=== PATIENT | male | born 2000 | race Two or more races ===

== ENCOUNTER 2024-04-06 23:13 | Emergency (ER) | payer MEDICAID, SELFPAY ==
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
[2024-04-06 23:56] VITALS: BP 140/76; PULSE 127; RESP 18; TEMP 36.7; O2SAT 95
[2024-04-06 23:58] VITALS: BMI 22.8
[2024-04-07] MEDS: HALOPERIDOL LACT INJ 5 MG/ML VIAL IM (00:24)
[2024-04-07] MEDS: LORazepam 2 MG/ML VIAL IM (00:25)
--- NOTE | 2024-04-07 00:27 | PC.NURSE ---
PT STARTED TO SAY HE WANTS TO LEAVE, STARTED YELLING AND CURSING, VALENTIN ZAMORA CALLED, RESTRAINT APPLIED, DR. RODRIGUEZ AWARE , NEW ORDER GIVEN AND CARRIED OUT.
[2024-04-07 01:08] LABS: Basophils # (Auto) 0.1 Thou/mm3 (0.0-0.2); Basophils % (Auto) 0 % (0-2.5); Eosinophils # (Auto) 0.1 Thou/mm3 (0.0-0.5); Eosinophils % (Auto) 1 % (0-10); Hematocrit 46.4 % (41.0-53.0); Hemoglobin 16.4 g/dL (13.5-16.0); Immature Granulocytes % (Auto) 1 % (0-0); Immature Granulocytes Auto 0.09 Thou/mm3 (0.00-0.00); Lymphocytes # (Auto) 3.6 Thou/mm3 (1.0-4.8); Lymphocytes % (Auto) 21 % (10-50); Mean Corpuscular HGB Conc 35.3 g/dl (31.0-37.0); Mean Corpuscular Hemoglobin 29.6 pg (25.0-35.0); Mean Corpuscular Volume 84 fL (80-100); Monocytes # (Auto) 0.8 Thou/mm3 (0.0-0.8); Monocytes % (Auto) 5 % (0-12); Neutrophils # (Auto) 12.9 Thou/mm3 (1.8-7.7); Neutrophils % (Auto) 73 % (37-80); Nucleated Red Blood Cell % 0 /100 WBC (0); Platelet Count 341 Thou/mm3 (140-440); Red Blood Count 5.54 Miln/mm3 (4.50-5.90); White Blood Count 17.6 Thou/mm3 (3.8-10.6)
[2024-04-07 01:23] LABS: Acetaminophen < 2.0 mcg/mL (10.0-20.0); Alanine Aminotransferase 19 U/L (10-49); Albumin, Serum 5.2 gm/dL (3.5-5.0); Albumin/Globulin Ratio 1.5 (1.2-2.2); Alcohol, Blood Medical 205.4 mg/dL (0-10.0); Alkaline Phosphatase 83 U/L (46-116); Anion Gap 28 (7-16); Aspartate Amino Transferase 28 U/L (0-34); BUN/Creatinine Ratio 10 Ratio (12-20); Bilirubin,Total 0.4 mg/dL (0.3-1.2); Blood Urea Nitrogen 13 mg/dL (9-23); Calcium 9.7 mg/dL (8.3-10.6); Calcium (Corrected) 9.7 mg/dL (8.5-10.1); Chloride 109 mMol/L (98-107); Creatinine (Component) 1.3 mg/dL (0.6-1.3); Estimated Creatinine Clearance 85.8 mL/min (>60); Free T4 (Free Thyroxine) 1.58 ng/dL (0.89-1.76); Globulin 3.4 gm/dL (2.3-3.5); Glucose 121 mg/dL (74-106); Osmolality,Calculated 295 (275-295); Potassium 3.1 mMol/L (3.4-5.1); Salicylate < 3.0 mg/dL; Sodium 148 mMol/L (136-145); Thyroid Stimulating Hormone 2.81 uIU/mL (0.55-4.78); Total Protein 8.6 gm/dL (5.7-8.2); eGFR > 60 See Note
[2024-04-07 01:25] LABS: Carbon Dioxide 11.3 mMol/L (20.0-31.0)
[2024-04-07 02:18] VITALS: BP 138/68; PULSE 84; RESP 17; TEMP 36.7; O2SAT 97
[2024-04-07 04:43] VITALS: BP 96/63; PULSE 80; RESP 17; TEMP 36.7; O2SAT 98
[2024-04-07 04:51] LABS: Anion Gap 15 (7-16); BUN/Creatinine Ratio 12 Ratio (12-20); Blood Urea Nitrogen 12 mg/dL (9-23); Carbon Dioxide 22.5 mMol/L (20.0-31.0); Chloride 108 mMol/L (98-107); Estimated Creatinine Clearance 111.5 mL/min (>60); Glucose 113 mg/dL (74-106); Osmolality,Calculated 289 (275-295); Potassium 3.2 mMol/L (3.4-5.1); Sodium 145 mMol/L (136-145); eGFR > 60 See Note
[2024-04-07 06:18] LABS: Amphetamine/Methamp Scrn,U Negative (Negative); Barbiturate Screen,Urine Negative (Negative); Benzodiazepines Screen,Urine Negative (Negative); Benzoylecgonine Screen, Ur Negative (Negative); Fentanyl Screen,Urine Negative (Negative); Opiate Screen,Urine Negative (Negative); THC Screen,Urine Positive (Negative)
[2024-04-07 06:19] VITALS: BP 112/73; PULSE 66; RESP 18; TEMP 36.7; O2SAT 98
--- NOTE | 2024-04-07 06:23 | XR_ITS ---
Examination: CT brain head without contrast. 2-D sagittal coronal reconstructions Date and time of exam:April 07, 2024 0658 hrs. Indications: Injury to the head today with hand pain CTDI: vol (mGy):50.9 DLP: (mGycm):1005 Technique: Multiple CT axial sections of the brain have been obtained, 5 mm slice thickness. Contrast has not been administered. 2-D sagittal, coronal reconstructions have been obtained Low dose protocols were performed. One or more of the following dose reduction techniques were used; automated exposure control, adjustment of the mA and/or KV according to patient size, use of iterative reconstruction technique. Findings: No significant ventricular enlargement. Intra-axial or extra-axial hemorrhage density is not seen. No mass effect or midline shift Basal cisterns are not remarkable. Fourth ventricle is midline. Cranial vault intact. Soft tissue swelling anterior to the right optic globe and right zygomatic arch Impression: Negative for acute hemorrhage, mass effect or midline shift
--- NOTE | 2024-04-07 06:24 | XR_ITS ---
Examination: CT cervical spine without contrast 2-D sagittal reconstructions 2-D coronal reconstructions 3-D reconstructions. Exam date and time:April 07, 2024 0658 hrs. Indications: Injury to the head today, head pain CTDI:vol (mGy) 8.32 DLP: (mGycm) 176 Technique: Multiple 2 mm axial sections of the cervical spine have been obtained. The coronal and sagittal reconstructions have been obtained. 3-D reconstructions have been obtained. Low dose protocols were performed. One or more of the following dose reduction techniques were used; automated exposure control, adjustment of the mA and/or KV according to patient size, use of iterative reconstruction technique. Findings: Axial sections demonstrate intact base of the skull. C1 exhibit satisfactory relationship to the odontoid. No acute cervical vertebral body fracture seen. Alignment posterior spinous processes satisfactory. Impression: No acute cervical fracture.
--- NOTE | 2024-04-07 06:41 | PD.EDADDENDU ---
Emergency Room Addendum Addendum Narrative: 0600: Care assumed from Dr. Galvan, the previous shift emergency physician. Past medical, surgical, social and family history reviewed. Vitals and home medications reviewed. I will assume the care of the patient at this time, pending medical clearance and CRISIS evaluation. Please refer to the emergency department record for history and examination from initial visit.? The patient was placed in ED observation care at 04/07/2024 at 0600 hours. The patient was placed in ED observation care because of undifferentiated decompensated behavioral health evaluation. The patients past medical history, social history, and family history were reviewed. The plan of care will include serial examinations. While in ED observation the patient will have access to water, food, and personal hygiene. If the patient takes home medication(s), they will be continued in ED observation. Physical exam by me shows patient under no acute distress at this time. 0900: Patient is medically cleared. Negative head CT and cervical CT. Pending CRISIS evaluation. 0946: Patient was placed on a 5150 hold. 1200: [facility] accepted patient. 1300: Patient left to [facility]. ED observation care ended. RADIOLOGY Procedure(s): CT head/brain wo con Accession Number(s): [id number] cc: Tip Hatfield MD; NO PRIMARY/FAMILY,PHYSICIAN; Adelaide Jacobs MD~ Examination: CT brain head without contrast. 2-D sagittal coronal reconstructions Date and time of exam:April 07, 2024 0658 hrs. Indications: Injury to the head today with hand pain CTDI: vol (mGy):50.9 DLP: (mGycm):1005 Technique: Multiple CT axial sections of the brain have been obtained, 5 mm slice thickness. Contrast has not been administered. 2-D sagittal, coronal reconstructions have been obtained Low dose protocols were performed. One or more of the following dose reduction techniques were used; automated exposure control, adjustment of the mA and/or KV according to patient size, use of iterative reconstruction technique. Findings: No significant ventricular enlargement. Intra-axial or extra-axial hemorrhage density is not seen. No mass effect or midline shift Basal cisterns are not remarkable. Fourth ventricle is midline. Cranial vault intact. Soft tissue swelling anterior to the right optic globe and right zygomatic arch Impression: Negative for acute hemorrhage, mass effect or midline shift Dictated By: Tip Hatfield MD Procedure(s): CT cervical spine wo [facility] Accession Number(s): [id number] cc: Tip Hatfield MD; NO PRIMARY/FAMILY,PHYSICIAN; Adelaide Jacobs MD~ Examination: CT cervical spine without contrast 2-D sagittal reconstructions 2-D coronal reconstructions 3-D reconstructions. Exam date and time:April 07, 2024 0658 hrs. Indications: Injury to the head today, head pain CTDI:vol (mGy) 8.32 DLP: (mGycm) 176 Technique: Multiple 2 mm axial sections of the cervical spine have been obtained. The coronal and sagittal reconstructions have been obtained. 3-D reconstructions have been obtained. Low dose protocols were performed. One or more of the following dose reduction techniques were used; automated exposure control, adjustment of the mA and/or KV according to patient size, use of iterative reconstruction technique. Findings: Axial sections demonstrate intact base of the skull. C1 exhibit satisfactory relationship to the odontoid. No acute cervical vertebral body fracture seen. Alignment posterior spinous processes satisfactory. Impression: No acute cervical fracture. Dictated By: Tip Hatfield MD
[2024-04-07] MEDS: POTASSIUM CHLORIDE 10% 20 MEQ/15 ML UDC 40 MEQ PO (09:35)
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
[2024-04-07 10:00] VITALS: BP 131/74; PULSE 80; RESP 22; TEMP 37.1; O2SAT 96
--- NOTE | 2024-04-07 10:48 | PC.NURSE ---
BREAKFAST TRAY DELIVERED, PT EATING, SITTER REMAINS IN PLACE
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
--- NOTE | 2024-04-07 11:07 | PC.CC ---
Patient was accepted to [facility]. Rachel provided accepting information. Dr. Adler is accepting in [address]. ASW arranging transportation. Patient was provided with accepting facility information. Discharge plan to [facility] provided to Dr. Jacobs, Ira Hoffman, and bedside RN Hayden.
== END 2024-04-07 13:10 ==
LOC: SERX 04-07 00:31
PROVIDERS: Emergency Provider Emergency Medicine
DX: R45.851 Suicidal ideations (principal); S00.81XA Abrasion of other part of head, initial encounter; F12.90 Cannabis use, unspecified, uncomplicated; F10.90 Alcohol use, unspecified, uncomplicated; Y90.7 Blood alcohol level of 200-239 mg/100 ml; F17.210 Nicotine dependence, cigarettes, uncomplicated; Z78.1 Physical restraint status; Y09 Assault by unspecified means
CPT/HCPCS: 36415; 70450; 72125; 80048; 80053; 80307; 80320; 80329; 84439; 84443; 85025; 90839; 96127; 96372; 99285; J1630; J2060; A9270; G0480

== ENCOUNTER 2024-07-01 15:27 | Emergency (ER) | payer MEDICAID, SELFPAY ==
[2024-07-01 15:30] VITALS: BP 135/75; PULSE 116; RESP 18; O2SAT 94; BMI 22.6
--- NOTE | 2024-07-01 15:30 | PC.NURSE ---
PT BROUGHT IN BY BENITA GRAHAM WITH FULL BODY WRAP ON, SPIT HOOT AND HELMET ON FOR SAFETY OF PT/STAFF/OFFICERS. PT YELLING AND CUSSING, REFUSING TO ANSER ANY QUESTIONS. PER OFFICER, PT WAS FOUND WITH LOTS OF ALCOHOL ON HIM.
--- NOTE | 2024-07-01 15:32 | PD.EDMEDCL ---
ED Medical Clearance RME/HPI General Chief complaint: Medical Clearance Stated complaint: MEDICAL CLEARANCE Time Seen by Provider: 07/01/24 15:33 Arrival date/time: 07/01/24 15:27 Limitations: no limitations RME / HPI RME / HPI Narrative: 23 year old male presents to the ED [facility] and Yanna GRAHAM for medical clearance for incarceration today. Per PD, patient was arrested for public intoxication and was combative during arrest. No injuries sustained. While in the ED patient refusing to answer any questions and is laughing inappropriately. Related Information Previous Rx's ?Medication ?Instructions ?Recorded metoclopramide HCl 5 mg tablet 5 mg PO TID #30 tabs 04/26/22 (Reglan) ondansetron 4 mg disintegrating 4 mg PO Q8H PRN nausea and 04/26/22 tablet vomiting #10 tabs potassium chloride 20 mEq 20 meq PO QDAY #10 tabs 09/07/22 tablet,extended release prochlorperazine maleate 10 mg 10 mg PO BID PRN nausea and 09/07/22 tablet (Compazine) vomiting #14 tabs Allergies Allergy/AdvReac Type Severity Reaction Status Date / Time No Known Allergies Allergy Verified 07/01/24 15:34 Review of Systems Review of Systems ROS Unobtainable: unobtainable due to mental status Past Medical History Past Medical History CARDIAC: Negative Cardiac Disorders or Congestive Heart Failure RESPIRATORY: Negative Chronic Obstructive Pulmonary Disease (COPD) or Asthma GENITOURINARY: Negative Renal Disease ENDOCRINE: Negative Diabetes Mellitus Type 1 or Diabetes Mellitus Type 2 HEMATOLOGIC: Negative Sickle Cell Disease PSYCHO/SOCIAL: Positive Recreational Drug Use Social History SMOKING STATUS: Current some day smoker SUBSTANCE USE: marijuana ED Exam General Limitations: Present no limitations General appearance: Present alert and other (Patient is combative, refusing to answer questions, laughing inappropriately, no obvious trauma ) Head Head exam: Present atraumatic Eye Eye exam: Present normal appearance, PERRL and EOMI ENT ENT exam: Present normal exam, normal oropharynx and mucous membranes moist Neck Neck exam: Present normal inspection, full ROM and trachea midline Chest Chest inspection: Present normal inspection and symmetric chest wall rise Respiratory Respiratory exam: Present normal lung sounds bilaterally Cardiovascular Cardiovascular exam: Present regular rate, normal rhythm and normal heart sounds Abdominal Exam Abdominal exam: Present soft and normal bowel sounds Extremities Exam Extremities exam: Present normal inspection and full ROM Back Exam Back exam: Present normal inspection and full ROM Neurological Exam Neurological exam: Present alert and CN II-XII intact Psychiatric Psychiatric exam: Present other (Laughing inappropriately. ) Skin Skin exam: Present warm, dry, intact and normal color Course Quality Measures none Orders Category Date Time Status Discharge Routine Discharge 07/01/24 15:31 Active Vital Signs Vital signs: Vital Signs Pulse Rate 116 H 07/01/24 15:30 Respiratory Rate 18 07/01/24 15:30 Blood Pressure 135/75 H 07/01/24 15:30 Pulse Oximetry (%) 94 L 07/01/24 15:30 Oxygen Delivery Method Room Air 07/01/24 15:30 Pulse ox is 94% on room air which is adequate. Medical Clearance MDM Narrative MDM Narrative:: Pauline Glover am scribing for and in the presence of Dr. Mueller. Patient data External records reviewed:: [facility] previous records (I reviewed ED visit on 04/07/2024 for suicidal ideation ) Clinical information provided by:: law enforcement Social determinants that could affect healthcare access:: alcohol use Patient has the following chronic illnesses:: No chronic medical hx reported How is presenting disease/condition affected by chronic disease/condition?: no chronic disease Evaluation data The following diagnostics were reviewed and interpreted by me:: other (specify) (No diagnostics ordered ) Lab and/or radiology exams considered but not ordered:: None Interpretation Summary: N/A Medications / Prescriptions Medications or Prescriptions considered but not ordered:: None Medication administrations:: None Consultations Consultation(s) initiated? (list below): No Diagnosis Medical Clearance Differential Diagnosis: other (Alcohol intoxication, anxiety, medical clearance for incarceration ) Most likely diagnosis given after review of the tests above:: Alcohol intoxication Admission Indicated Admission indicated?: not indicated Admission Request Was there a request for admission?: No Disposition Plan Disposition Plan: Discharge Discharge Attestation Discharge Attestation: The patient and all family members were given an opportunity to ask questions and understood the discharge instructions. Discharge instructions specifically effects, indications for sooner follow up or return to the emergency department, and the expected course of current diagnosis. Patient condition: Stable Discharge Plan Plan Patient Disposition: Senior Care/Court/Law Patient condition on transfer: Stable Prescriptions/Referrals Prescriptions/Med Rec: No Action prochlorperazine maleate [Compazine] 10 mg tablet 10 mg PO BID PRN (Reason: nausea and vomiting) Qty: 14 0RF potassium chloride 20 mEq tablet extended release 20 meq PO QDAY Qty: 10 0RF ondansetron 4 mg tablet,disintegrating 4 mg PO Q8H PRN (Reason: nausea and vomiting) Qty: 10 0RF metoclopramide HCl [Reglan] 5 mg tablet 5 mg PO TID Qty: 30 0RF Problem List Clinical Impression: Alcohol intoxication Patient/Caregiver Discharge Instructions Discharge Activity: activity as tolerated Education Materials: ED Alcohol Intoxication Print Language: [place]
[2024-07-01 15:33] VITALS: BMI 24.2
[2024-07-01 15:43] VITALS: BP 135/75; PULSE 124; RESP 20; O2SAT 95
== END 2024-07-01 15:45 ==
PROVIDERS: Emergency Provider Emergency Medicine
DX: Z02.89 Encounter for other administrative examinations (principal); F10.929 Alcohol use, unspecified with intoxication, unspecified
CPT/HCPCS: 99281

== ENCOUNTER 2024-08-12 02:29 | Emergency (ER) | payer MEDICAID, SELFPAY ==
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
[2024-08-12 03:05] VITALS: BMI 22.7
[2024-08-12] MEDS: HALOPERIDOL LACT INJ 5 MG/ML VIAL IM (03:06)
[2024-08-12] MEDS: DiphenhydrAMINE INJ 50 MG/ML VIAL IM (03:06)
[2024-08-12] MEDS: LORazepam 2 MG/ML VIAL IM (03:06)
--- NOTE | 2024-08-12 03:15 | PC.NURSE ---
PT REFUSING TO COOPERATE OR ANSWERING ANY QUESTIONS
[2024-08-12 04:36] VITALS: BP 127/73; PULSE 100; RESP 16; TEMP 36.9; O2SAT 97
--- NOTE | 2024-08-12 06:23 | EDNOTE_ITS ---
Emergency Room Addendum <Laura Lange - Last Filed: 08/12/24 11:54> Addendum Narrative: 0600: Care assumed from Dr. Jacobs, the previous shift emergency physician. Past medical, surgical, social and family history reviewed. Vitals and home medications reviewed. I will assume the care of the patient at this time, pending labs and final disposition. Please refer to the emergency department record for history and examination from initial visit.? Physical exam at 0707 hours by me shows patient under no acute distress at this time. Patient has a small abrasion to the right zygomatic area. Patient is medically cleared. The patient was placed in ED observation care at 08/12/2024 at 0707 hours. The patient was placed in ED observation care pending mental older adult social work specialist consult for placement. The patients past medical history, social history, and family history were reviewed. The plan of care will include serial examinations. While in ED observation the patient will have access to water, food, and personal hygiene. If the patient takes home medication(s), they will be continued in ED observation. <Garcia Mueller MD - Last Filed: 08/12/24 12:00> Addendum Narrative: 0600: Care assumed from Dr. Jacobs, the previous shift emergency physician. Past medical, surgical, social and family history reviewed. Vitals and home medications reviewed. I will assume the care of the patient at this time, pending labs and final disposition. Please refer to the emergency department record for history and examination from initial visit.? Physical exam at 0707 hours by me shows patient under no acute distress at this time. Patient has a small abrasion to the right zygomatic area. Patient is medically cleared. The patient was placed in ED observation care at 08/12/2024 at 0707 hours. The patient was placed in ED observation care pending mental older adult social work specialist consult for placement. The patients past medical history, social history, and family history were reviewed. The plan of care will include serial examinations. While in ED observation the patient will have access to water, food, and personal hygiene. If the patient takes home medication(s), they will be continued in ED observation. 1158: Patient was accepted to psychiatric facility at [place]. There is no specific treatments for AC joint sprain. Patient is stable for psychiatric admission. Results <Laura Lange - Last Filed: 08/12/24 11:54> Objective Laboratory: Laboratory Last Values Ethyl Alcohol 136.1 mg/dL (0-10.0) H 08/12/24 06:42 Imaging: Procedure(s): XR shoulder RT min 2V Accession Number(s): [id number] cc: Garcia Mueller MD; Tip Hatfield MD; NO PRIMARY/FAMILY,PHYSICIAN~ Examination: Shoulder,right, 3 views Technique: Shoulder AP internal rotation, AP external rotation, Y view shoulder, 3 views Exam date and time :2024 739 hours INDICATIONS: Patient fell today with injury to the shoulder, shoulder pain. FINDINGS: Prominent AC joint separation, 10 mm No shoulder fracture or dislocation IMPRESSION: Prominent AC joint separation Dictated By: Tip Hatfield MD <Garcia Mueller MD - Last Filed: 08/12/24 12:00> Objective Laboratory: Laboratory Last Values Ethyl Alcohol 136.1 mg/dL (0-10.0) H 08/12/24 06:42
--- NOTE | 2024-08-12 06:46 | PC.NURSE ---
PT COMPLAINING OF RIGHT SHOULDER PAIN NOTIFIED
--- NOTE | 2024-08-12 07:14 | XR_ITS ---
Examination: Shoulder,right, 3 views Technique: Shoulder AP internal rotation, AP external rotation, Y view shoulder, 3 views Exam date and time :2024 739 hours INDICATIONS: Patient fell today with injury to the shoulder, shoulder pain. FINDINGS: Prominent AC joint separation, 10 mm No shoulder fracture or dislocation IMPRESSION: Prominent AC joint separation
[2024-08-12 07:18] LABS: Alcohol, Blood Medical 136.1 mg/dL (0-10.0)
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
--- NOTE | 2024-08-12 08:41 | PC.CC ---
Rat Trapper was notified by attending physician- Pt is medically cleared and ready for mental health evaluation.
[2024-08-12 09:08] LABS: Amphetamine/Methamp Scrn,U Negative (Negative); Barbiturate Screen,Urine Negative (Negative); Benzodiazepines Screen,Urine Negative (Negative); Benzoylecgonine Screen, Ur Negative (Negative); Fentanyl Screen,Urine Negative (Negative); Opiate Screen,Urine Negative (Negative); THC Screen,Urine Positive (Negative)
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
[2024-08-12 10:46] VITALS: PULSE 132; RESP 18; TEMP 37.3; O2SAT 97
--- NOTE | 2024-08-12 11:26 | PC.NURSE ---
After X-Ray confirmation, per MD recommendation, NG Tube was advanced 5cm
--- NOTE | 2024-08-12 11:48 | PC.CC ---
Pearl Glue Operator received information regard acceptance to [address] [address]- Dr. Dian Burton Unit- [phone] accepted @ 11:40- [facility] transport.
--- NOTE | 2024-08-12 13:23 | PC.CC ---
Parole Supervisor informed medical staff and Pt of [facility] acceptance and transportation ETA of 1415. Pt asked to make phone call to mother and boyfriend.
[2024-08-12 14:15] VITALS: BP 123/70; PULSE 101; RESP 16; TEMP 36.8; O2SAT 99
== END 2024-08-12 14:26 ==
LOC: SERX 06:59
PROVIDERS: Emergency Medicine; Emergency Provider Emergency Medicine
DX: T14.91XA Suicide attempt, initial encounter (principal); S43.51XA Sprain of right acromioclavicular joint, initial encounter; V03.10XA Pedestrian on foot injured in collision with car, pick-up truck or van in traffic accident, initial encounter
CPT/HCPCS: 36415; 73030; 80307; 80320; 96127; 96372; 99285; J1200; J1630; J2060; G0480

== ENCOUNTER 2024-10-15 04:38 | Emergency (ER) | payer MEDICAID, SELFPAY ==
[2024-10-15 04:45] VITALS: PULSE 88; RESP 18; O2SAT 99; BMI 20.7
[2024-10-15 04:47] VITALS: BP 131/86; PULSE 71; RESP 18; TEMP 36.4; O2SAT 99
--- NOTE | 2024-10-15 04:58 | XR_ITS ---
Examination: CT abdomen and pelvis without contrast. Coronal 3-D reconstructions. Sagittal 2-D reconstructions. Date and time of exam:October 15 70,025, 0615 hours, comparison October 12, 2024 INDICATIONS: Onset abdominal pain today CTDI: vol (mGy): 9.98. DLP: (mGycm): 547. Technique: Axial images of the abdomen have been obtained, 3 mm slice thickness Intravenous contrast material has not been administered. Low dose protocols were performed. One or more of the following dose reduction techniques were used; automated exposure control, adjustment of the mA and/or KV according to patient size, use of iterative reconstruction technique. Findings: Gastritis pattern with possible small amounts of blood in the stomach, coronal image 45 No focal liver or splenic lesions. No gallstones. No pancreatic or adrenal mass. No renal or ureteral calculi, no hydronephrosis Aorta normal size. Normal appendix. No bowel obstruction or diverticulitis Distended urinary bladder Normal seminal vesicles No prostatomegaly Mild diffuse lumbar disc narrowing IMPRESSION: Gastritis pattern with possible small amounts of blood in the stomach, clinical correlation is advised Negative for pancreatitis No renal or ureteral calculi, no hydronephrosis Normal appendix No bowel obstruction diverticulitis or free air on this noncontrast study
--- NOTE | 2024-10-15 05:00 | PD.EDRME ---
Rapid Medical Screening Exam RME Arrival date/time: 10/15/24 04:38 This is a case of 23-year-old male with history of alcohol intoxication anxiety depression just discharged yesterday for alcoholic gastritis sepsis and possible DKA came in from the ambulance due to abdominal pain nausea vomiting with coffee-ground worsening of the symptoms this patient decided to call 911 and hence was transferred here in the emergency room Chief Complaint: Abdominal Pain Vital signs: Vital Signs Temperature 97.5 F 10/15/24 04:47 Pulse Rate 71 10/15/24 04:47 Respiratory Rate 18 10/15/24 04:47 Blood Pressure 131/86 H 10/15/24 04:47 Pulse Oximetry (%) 99 10/15/24 04:47 Oxygen Delivery Method Room Air 10/15/24 04:47
[2024-10-15 05:45] LABS: Base Excess, Venous -2 (-3-3); O2 Saturation, Venous 92 % (96-97); PCO2, Venous 29 mmHg (36-56); PO2, Venous 58 mmHg (15-58); pH, Venous 7.46 (7.33-7.66)
[2024-10-15 05:51] LABS: Lactate (Lactic Acid) 4.7 mMol/L (0.4-2.0)
[2024-10-15 06:13] LABS: Alanine Aminotransferase 31 U/L (10-49); Albumin, Serum 5.2 gm/dL (3.5-5.0); Albumin/Globulin Ratio 1.9 (1.2-2.2); Alkaline Phosphatase 76 U/L (46-116); Anion Gap 18 (7-16); Aspartate Amino Transferase 46 U/L (0-34); BUN/Creatinine Ratio 9 Ratio (12-20); Bilirubin,Total 0.4 mg/dL (0.3-1.2); Blood Urea Nitrogen 9 mg/dL (9-23); Calcium 9.9 mg/dL (8.3-10.6); Calcium (Corrected) 9.9 mg/dL (8.5-10.1); Carbon Dioxide 19.8 mMol/L (20.0-31.0); Chloride 106 mMol/L (98-107); Creatinine (Component) 1.0 mg/dL (0.6-1.3); Estimated Creatinine Clearance 104.1 mL/min (>60); Globulin 2.7 gm/dL (2.3-3.5); Glucose 131 mg/dL (74-106); Lipase 30 U/L (12-53); Osmolality,Calculated 287 (275-295); Potassium 3.2 mMol/L (3.4-5.1); Sodium 144 mMol/L (136-145); Total Protein 7.9 gm/dL (5.7-8.2); eGFR > 60 See Note
--- NOTE | 2024-10-15 06:25 | EDNOTE_ITS ---
<Statement entered by Adelaide Jacobs MD - 10/30/24 06:31> I, Adelaide Jacobs MD, have reviewed the history, exam, and assessment of the patient. I have evaluated the patient independently and agree with the plan of care documented by [ ]. All diagnostic studies were reviewed and discussed. I confirm the diagnosis as documented by the Resident. I was present during the Medical Decision Making for this patient. The patient's plan of care was created between myself and the Resident and consistent with our discussion of the patient's case. ED General RME/HPI General Chief complaint: Abdominal Pain Stated complaint: ABDOMINAL PAIN Time Seen by Provider: 10/15/24 05:39 Arrival date/time: 10/15/24 04:38 RME / HPI RME / HPI narrative: 10/15/24 04:38 This is a case of 23-year-old male with history of alcohol intoxication anxiety depression just discharged yesterday for alcoholic gastritis sepsis and possible DKA came in from the ambulance due to abdominal pain nausea vomiting with coffee-ground worsening of the symptoms this patient decided to call 911 and hence was transferred here in the emergency room 23-year-old male with past medical history of alcohol use with withdrawals, anxiety, and depression comes into the ED with chief complaints of abdominal pain and associated with nausea and coffee-ground emesis which started earlier tonight after he ate some spicy food. Patient was seen in our hospital on 10/11/2024 and he was discharged on 10/13/2024 for similar symptoms. Patient uses marijuana and last drink was earlier tonight. He denies having any chest pain, shortness of breath, or any other associated symptoms. Related Data Home Medications ?Medication ?Instructions ?Recorded ?Confirmed hydroxyzine HCl 25 mg tablet 25 mg PO HS 10/12/2409/29 sertraline 50 mg tablet 50 mg PO Q24H 10/12/2410/12 Previous Rx's ?Medication ?Instructions ?Recorded ondansetron 4 mg disintegrating 4 mg PO Q8H PRN nausea and 04/26/22 tablet vomiting #10 tabs famotidine 20 mg tablet (Pepcid) 20 mg PO QDAY #30 tab s 10/13/24 Allergies Allergy/AdvReac Type Severity Reaction Status Date / Time No Known Allergies Allergy Verified 10/15/24 04:42 Review of Systems Review of Systems Systems Reviewed: All systems reviewed, normal except as documented Past Medical History Past Medical History CARDIAC: Negative Cardiac Disorders or Congestive Heart Failure RESPIRATORY: Negative Chronic Obstructive Pulmonary Disease (COPD) or Asthma GENITOURINARY: Negative Renal Disease ENDOCRINE: Negative Diabetes Mellitus Type 1 or Diabetes Mellitus Type 2 HEMATOLOGIC: Negative Sickle Cell Disease PSYCHO/SOCIAL: Positive Recreational Drug Use and Depression Social History SMOKING STATUS: Unknown if ever smoked SUBSTANCE USE: marijuana ED Exam Narrative Physical exam: Gen: A&O X 3, moderate discomfort due to pain and anxious appearing HEENT: NCAT, EOMI, Pupils reactive ADELE, not icteric. External ears normal. No rhinorrhea. Dry mucous membranes. Neck: Supple, full range of motion, no observable masses, No meningeal sign. Lungs: No Respiratory distress, clear bilateral. CV: RRR, no murmurs. Abdomen: Soft, nondistended, mildly tender in epigastric region, No rebound tenderness. MSK: No joint swelling, no redness, peripheral pulses presents, lumbar with no edema. Skin: No rashes, petechiae, lesions. Neuro: No focal neurological deficits appreciated, sensory and motor intact. Psych: Cooperative, appropriate mood and effect. Course Quality Measures none Orders Category Date Time Status COVID-19 Screening Questionnaire NOW Care 10/15/24 07:40 Active Decision to Admit X1 Care 10/15/24 07:40 Active IV [Insert IV] NOW Care 10/15/24 06:51 Active NPO NOW Care 10/15/24 06:24 Active Diet NPO (NOW) Diet 10/15/24 06:[address] abdomen pelvis wo con Stat Exams 10/15/24 04:58 Completed Alcohol, Blood Medical Stat Lab 10/15/24 05:27 Results Blood Culture (Lab) Stat Lab 10/15/24 04:59 Ordered CBC Stat Lab 10/15/24 05:27 Completed Comprehensive Metabolic Panel Stat Lab 10/15/24 05:27 Results Drug Screen,Urine Stat Lab 10/15/24 06:21 Ordered Lactic Acid [Lactate (Lactic Acid)] Stat Lab 10/15/24 05:27 Results Lipase Stat Lab 10/15/24 05:27 Results Procalcitonin Stat Lab 10/15/24 05:27 Results Urinalysis Stat Lab 10/15/24 04:58 Ordered Venous Blood Gas Stat Lab 10/15/24 05:27 Completed Folic Acid Inj Med 10/15/24 06:31 Discontinued 1 mg IVP X1 ONE Magnesium Sulfate 2 GM Ivpb [Magnesium Sulfate Ivpb] Med 10/15/24 06:32 Active 2 gm in 50 ml IV X1 Metoclopramide Inj [Reglan Inj] Med 10/15/24 06:41 Discontinued 5 mg IVP X1 ONE Midazolam Inj [Versed Inj] Med 10/15/24 06:33 Discontinued 0.5 mg IVP X1 ONE Midazolam Inj [Versed Inj] Med 10/15/24 06:33 Discontinued 1 mg IVP X1 ONE POTASSIUM CHL 10 mEq IVPB [Kcl Ivpb] Med 10/15/24 06:31 Active 10 meq in 100 ml IV Q1H Pantoprazole Inj [Protonix Inj] Med 10/15/24 06:24 Discontinued 80 mg IVP X1 ONE Ringers Lactated 1000 ml [Lactated Ringers] 1,000 ml Med 10/15/24 06:23 Discontinued IV 999 mls/hr Thiamine Inj [Vitamin B-1 Inj] Med 10/15/24 06:31 Discontinued 100 mg IVP X1 ONE Vital Signs Vital signs: Vital Signs Temperature 97.5 F 10/15/24 04:47 Pulse Rate 71 10/15/24 04:47 Respiratory Rate 18 10/15/24 04:47 Blood Pressure 131/86 H 10/15/24 04:47 Pulse Oximetry (%) 99 10/15/24 04:47 Oxygen Delivery Method Room Air 10/15/24 04:47 Discharge Plan Plan Patient Disposition: Admit Acute Care w/in Hospital Prescriptions/Referrals Prescriptions/Med Rec: No Action ondansetron 4 mg tablet,disintegrating 4 mg PO Q8H PRN (Reason: nausea and vomiting) Qty: 10 0RF hydroxyzine HCl 25 mg tablet 25 mg PO HS Patient Comments: TAKE ONE TABLET BY MOUTH AT BEDTIME sertraline 50 mg tablet 50 mg PO Q24H Patient Comments: TAKE ONE TABLET BY MOUTH EVERY DAY famotidine [Pepcid] 20 mg tablet 20 mg PO QDAY Qty: 30 0RF Referrals: Boyd Gifford MD [Primary Care Provider] - In 1 week Problem List Clinical Impression: Acidosis, lactic, Intractable nausea and vomiting Patient/Caregiver Discharge Instructions Print Language: Romanian Stand Alone Forms: Abigail Award Info., Patient Portal Info Letter MDM Narrative MDM hospital course: Patient was seen and assessed by myself upon arrival to the room. Diagnostic labs and imaging were reviewed. Patient had gap metabolic acidosis likely secondary to lactic acidosis therefore IV fluids along with Protonix and potassium, magnesium, thiamine, and folic acid. As patient also appears to be uncomfortable and fidgety we will give 1 mg of Versed. 7:40: Spoke with IM team for hospital admission. Will assess the patient for admission. Case disclosed with Attending Dr. Arlene Blackmon PGY2 Disclaimer: Even though this this note was dictated by speech recognition and even though it was carefully revised there may still be minor errors in structural fitter due to voice recognition software. Medication Administration(s) Medication Administration History Potassium Chloride (Kcl Ivpb) 10 meq in 100 mls @ 100 mls/hr IV Q1H FAVIAN Stop: 10/15/24 08:30 Magnesium Sulfate (Magnesium Sulfate Ivpb) 2 gm in 50 mls @ 25 mls/hr IV X1 ONE Stop: 10/15/24 08:31 Last Admin: 10/15/24 07:35 Dose: 25 mls/hr Documented By: MUMTAZ Discontinued Medications Folic Acid (Folic Acid Inj 1 Mg/0.2 Ml) 1 mg IVP X1 ONE Stop: 10/15/24 06:32 Last Admin: 10/15/24 07:21 Dose: 1 mg Documented By: MUMTAZ Lactated Ringer's (Lactated Ringers) 1,000 mls @ 999 mls/hr IV .Q1H1M ONE Stop: 10/15/24 07:23 Last Admin: 10/15/24 07:21 Dose: 999 mls/hr Documented By: MUMTAZ Metoclopramide HCl (Metoclopramide Inj 5 Mg/Ml Vial 2 Ml) 5 mg IVP X1 ONE; Prot ocol Stop: 10/15/24 06:42 Last Admin: 10/15/24 07:14 Dose: 5 mg Documented By: MUMTAZ Midazolam HCl (Midazolam Inj 1 Mg/Ml Vial 2 Ml) 0.5 mg IVP X1 ONE Stop: 10/15/24 06:34 Last Admin: 10/15/24 06:54 Dose: Not Given Documented By: MUMTAZ Non-Admin Reason: Discontinued Midazolam HCl (Midazolam Inj 1 Mg/Ml Vial 2 Ml) 1 mg IVP X1 ONE Stop: 10/15/24 06:34 Last Admin: 10/15/24 07:18 Dose: 1 mg Documented By: MUMTAZ Pantoprazole Sodium (Pantoprazole Inj 40 Mg Vial) 80 mg IVP X1 ONE Stop: 10/15/24 06:25 Last Admin: 10/15/24 06:53 Dose: 80 mg Documented By: MUMTAZ Thiamine HCl (Thiamine Inj 100 Mg/Ml Vial 2 Ml) 100 mg IVP X1 ONE Stop: 10/15/24 06:32 Last Admin: 10/15/24 07:20 Dose: 100 mg Documented By: MUMTAZ
[2024-10-15 06:33] LABS: Procalcitonin 0.06 ng/ml (0.0-0.49)
[2024-10-15 07:12] VITALS: BP 148/90; PULSE 73; RESP 18; TEMP 36.8; O2SAT 100
[2024-10-15] MEDS: METOCLOPRAMIDE INJ 5 MG/ML VIAL 2 ML IVP (07:14)
[2024-10-15] MEDS: MIDAZOLAM INJ 1 MG/ML VIAL 2 ML IVP (07:18)
[2024-10-15] MEDS: THIAMINE INJ 100 MG/ML VIAL 2 ML IVP (07:20)
[2024-10-15] MEDS: FOLIC ACID INJ 1 MG/0.2 ML IVP (07:21)
[2024-10-15] MEDS: RINGERS LACTATED 1000 ML 1,000 ML 999 ML IV (07:21)
[2024-10-15 07:28] LABS: Basophils # (Auto) 0.0 Thou/mm3 (0.0-0.2); Basophils % (Auto) 0 % (0-2.5); Eosinophils # (Auto) 0.0 Thou/mm3 (0.0-0.5); Eosinophils % (Auto) 0 % (0-10); Hematocrit 44.6 % (41.0-53.0); Hemoglobin 15.8 g/dL (13.5-16.0); Immature Granulocytes Auto 0.05 Thou/mm3 (0.00-0.00); Lymphocytes # (Auto) 1.7 Thou/mm3 (1.0-4.8); Lymphocytes % (Auto) 14 % (10-50); Mean Corpuscular HGB Conc 35.4 g/dl (31.0-37.0); Mean Corpuscular Hemoglobin 30.9 pg (25.0-35.0); Mean Corpuscular Volume 87 fL (80-100); Monocytes # (Auto) 0.4 Thou/mm3 (0.0-0.8); Monocytes % (Auto) 3 % (0-12); Neutrophils # (Auto) 10.0 Thou/mm3 (1.8-7.7); Neutrophils % (Auto) 82 % (37-80); Nucleated Red Blood Cell # 0.00 Thou/mm3 (0.00-0.00); Nucleated Red Blood Cell % 0 /100 WBC (0); Platelet Count 277 Thou/mm3 (140-440); RDW Standard Deviation 42.6 fL (35.1-43.9); Red Blood Count 5.11 Miln/mm3 (4.50-5.90); White Blood Count 12.2 Thou/mm3 (3.8-10.6)
[2024-10-15] MEDS: Magnesium Sulfate 2 GM Ivpb 2 GM/50 ML BAG IV (07:35)
[2024-10-15 07:54] LABS: Alcohol, Blood Medical 156.8 mg/dL (0-10.0)
[2024-10-15] MEDS: POTASSIUM CHL 10 mEq IVPB 10 MEQ/100 ML BAG 100 MEQ IV (08:30)
[2024-10-15 08:41] LABS: Reflex Lactate? Y
--- NOTE | 2024-10-15 08:58 | PC.NURSE ---
Patient stated to Dr Pan and RN that he wants to leave AMA. Patient informed on the risks and patient still insists on leaving. Admitting informed and to come talk to patient.
[2024-10-15 09:00] VITALS: BP 107/60; PULSE 77; RESP 18; O2SAT 100
--- NOTE | 2024-10-15 09:06 | PC.NURSE ---
Admitting Dr Ascencio came to speak with patient. Patient still wanting to leave AMA. AMA paper signed. Any/All consequences of leaving explained to patient. Patient GCS 15 and verbalizes understanding. Encouraged to return as needed. Steady gait noted upon patient leaving.
== END 2024-10-15 09:06 | disposition left against medical advice (07) ==
LOC: SERX 07:40 → SERHOLD 08:07
PROVIDERS: Nurse Practitioner Family; Emergency Provider Emergency Medicine; PCP Family Medicine
DX: E87.20 Acidosis, unspecified (principal); R11.2 Nausea with vomiting, unspecified; Z53.29 Procedure and treatment not carried out because of patient's decision for other reasons
CPT/HCPCS: 36415; 74176; 80053; 80307; 80320; 81001; 82803; 83605; 83690; 83735; 84100; 84145; 85025; 85610; 85730; 87040; 96365; 96366; 96375; 99283; J2250; J2470; J2765; J3411; J3475; J3480; J3490; J7120; G0480

== ENCOUNTER 2024-10-15 10:01 | Inpatient (IN) | payer MEDICAID, SELFPAY ==
[2024-10-15 10:01] VITALS: PULSE 96; RESP 24; O2SAT 99; BMI 20.7
--- NOTE | 2024-10-15 10:10 | EDNOTE_ITS ---
<Statement entered by Adelaide Jacobs MD - 10/30/24 06:30> I, Adelaide Jacobs MD, have reviewed the history, exam, and assessment of the patient. I have evaluated the patient independently and agree with the plan of care documented by [ ]. All diagnostic studies were reviewed and discussed. I confirm the diagnosis as documented by the Resident. I was present during the Medical Decision Making for this patient. The patient's plan of care was created between myself and the Resident and consistent with our discussion of the patient's case. ED General RME/HPI General Chief complaint: Abdominal Pain Stated complaint: LUQ ABD PAIN SINCE LAST NIGHT, N/V Time Seen by Provider: 10/15/24 10:03 Arrival date/time: 10/15/24 10:01 RME / HPI RME / HPI narrative: 23-year-old male with past medical history of alcohol use with withdrawals, anxiety, and depression comes into the ED with chief complaints of abdominal pain and associated with nausea and coffee-ground emesis. Patient was seen earlier in the ER and was admitted to the hospital, but before leaving patient was taken upstairs patient left AGAINST MEDICAL ADVICE. At this time it was explained to him that he needed more interventions and treatment, but patient still stated that he wanted to leave AGAINST MEDICAL ADVICE. Patient was on his way home and stated that he started having a lot of abdominal pain and had another episode of vomiting therefore he called the ambulance and came in by ambulance. Again patient was noted to have dark emesis and abdominal pain with nausea. Otherwise denies all other associated symptoms. Patient states he did not drink any alcohol or anything. Related Data Home Medications ?Medication ?Instructions ?Recorded ?Confirmed hydroxyzine HCl 25 mg tablet 25 mg PO HS 10/12/2409/29 sertraline 50 mg tablet 50 mg PO Q24H 10/12/2410/12 Previous Rx's ?Medication ?Instructions ?Recorded ondansetron 4 mg disintegrating 4 mg PO Q8H PRN nausea and 04/26/22 tablet vomiting #10 tabs famotidine 20 mg tablet (Pepcid) 20 mg PO QDAY #30 tab s 10/13/24 Allergies Allergy/AdvReac Type Severity Reaction Status Date / Time No Known Allergies Allergy Verified 10/15/24 10:03 Review of Systems Review of Systems Systems Reviewed: All systems reviewed, normal except as documented Past Medical History Past Medical History CARDIAC: Negative Cardiac Disorders or Congestive Heart Failure RESPIRATORY: Negative Chronic Obstructive Pulmonary Disease (COPD) or Asthma GENITOURINARY: Negative Renal Disease ENDOCRINE: Negative Diabetes Mellitus Type 1 or Diabetes Mellitus Type 2 HEMATOLOGIC: Negative Sickle Cell Disease PSYCHO/SOCIAL: Positive Recreational Drug Use and Depression Social History SMOKING STATUS: Unknown if ever smoked SUBSTANCE USE: marijuana ED Exam Narrative Physical exam: Gen: A&O X 3, moderate discomfort due to pain and anxious appearing, fidgeting HEENT: NCAT, EOMI, Pupils reactive ADELE, not icteric. External ears normal. No rhinorrhea. Dry mucous membranes. Neck: Supple, full range of motion, no observable masses, No meningeal sign. Lungs: No Respiratory distress, clear bilateral. CV: RRR, no murmurs. Abdomen: Soft, nondistended, mildly tender in epigastric region, No rebound tenderness. MSK: No joint swelling, no redness, peripheral pulses presents, lumbar with no edema. Skin: No rashes, petechiae, lesions. Neuro: No focal neurological deficits appreciated, sensory and motor intact. Psych: Cooperative, appropriate mood and effect. Course Quality Measures none Orders Category Date Time Status COVID-19 Screening Questionnaire NOW Care 10/15/24 10:18 Active Decision to Admit X1 Care 10/15/24 10:18 Active Ondansetron Inj [Zofran Inj] Med 10/15/24 10:18 Discontinued 4 mg IVP X1 ONE Ringers Lactated 1000 ml [Lactated Ringers] 1,000 ml Med 10/15/24 10:18 Active IV 999 mls/hr Discharge Plan Plan Patient Disposition: Admit Acute Care w/in Hospital Prescriptions/Referrals Prescriptions/Med Rec: No Action ondansetron 4 mg tablet,disintegrating 4 mg PO Q8H PRN (Reason: nausea and vomiting) Qty: 10 0RF hydroxyzine HCl 25 mg tablet 25 mg PO HS Patient Comments: TAKE ONE TABLET BY MOUTH AT BEDTIME sertraline 50 mg tablet 50 mg PO Q24H Patient Comments: TAKE ONE TABLET BY MOUTH EVERY DAY famotidine [Pepcid] 20 mg tablet 20 mg PO QDAY Qty: 30 0RF Problem List Clinical Impression: Intractable nausea and vomiting, Abdominal pain Patient/Caregiver Discharge Instructions Print Language: Sinhala Stand Alone Forms: Abigail Award Info., Patient Portal Info Letter MDM Narrative MDM hospital course: Patient was seen and evaluated upon arrival by myself. On earlier visit patient got thiamine, Protonix 80, magnesium, and Versed 1mg, therefore will not need these at this time. Ordered IV fluids, potassium, and Zofran 10:17: Spoke with IM team for hospital admission. Will assess the patient for hospital admission. Case disclosed with Attending Dr. Arlene Blackmon PGY2 Disclaimer: Even though this this note was dictated by speech recognition and even though it was carefully revised there may still be minor errors in medical records field technician due to voice recognition software. Medication Administration(s) Medication Administration History Lactated Ringer's (Lactated Ringers) 1,000 mls @ 999 mls/hr IV .Q1H1M ONE Stop: 10/15/24 11:18 Discontinued Medications Ondansetron HCl (Ondansetron Inj 2 Mg/Ml Inj 2 Ml) 4 mg IVP X1 ONE; Protocol Stop: 10/15/24 10:19
[2024-10-15 10:28] VITALS: BP 151/92; PULSE 86; RESP 18; TEMP 36.9; O2SAT 100; BMI 20.7
[2024-10-15] MEDS: ONDANSETRON INJ 2 MG/ML INJ 2 ML 4 MG IVP ×2 (11:32→20:56)
[2024-10-15] MEDS: RINGERS LACTATED 1000 ML 1,000 ML 999 ML IV (11:49)
[2024-10-15] MEDS: POTASSIUM CHL 10 mEq IVPB 10 MEQ/100 ML BAG 100 MEQ IV ×2 (11:50→12:52)
[2024-10-15 12:59] VITALS: BP 146/75; PULSE 95; RESP 20; O2SAT 98
--- NOTE | 2024-10-15 13:26 | PD.RESHP ---
Documentation for date of: 10/15/24 HPI History of Present Illness History of present illness: 23-year-old male with past medical history of alcohol use with withdrawals, anxiety, and depression comes into the ED with chief complaints of abdominal pain associated with nausea and coffee-ground emesis. Initially patient was seen in the ER and admitted, however, left AMA before being taken upstairs. At this time it was explained to him that he needed more interventions and treatment, but patient still stated that he wanted to leave AGAINST MEDICAL ADVICE. He developed abdominal pain once more and had a neighbor call him an ambulance to return. He threw up at the front end assistant and described it as dark brown. Upon evaluation patient was writhing in discomfort. States he did not drink when he left, but just got very anxious and felt like he had to go. He vomited about 1-2 cups of green bile in front of the interviewer, no blood was noted. He is requesting ice packs to chew on. He has ongoing nausea and vomiting, denies diarrhea. Endorses epigastric pain is strictly in the abdomen and does not radiate to his back. States he had black and tarry stools at home. Eating usually resolves his symptoms but recently it has not helped. Denies SOB, chest pain, palpitations, streaks of blood in stool. ED Course Summary: Vitals: BP: 151/92, HR: 86,. RR: 18, T:98.4, O2:100% RA. Hyperlactemia, hypokalemic. On earlier visit patient got thiamine, Protonix 80, magnesium, and Versed 1mg. On 2nd arrival IV fluids, potassium, and Zofran. GI consulted for possible EGD. Medical Hx: Anxiety, depression, alcohol use disorder, alcohol withdrawals Medications: hydroxyzine, sertraline, famotidine, ondansetron Allergies: None Surgical history: None Fhx: None, mom and dad still alive Soc Hx: Mom and dad still alive, he lives at home with them (they want him to stop drinking) Rec drugs: denies cocaine (quit 2 years ago), +cannabis, denies meth, denies opiate, Tobacco: (quit 2-3 months ago) Alcohol: ongoing alcoholism (2-3 tall cans/day) All 12 systems reviewed and were negative except otherwise stated in HPI. Patient admitted for intractable abdominal pain. Exam Vital Signs Temp Pulse Resp BP Pulse Ox O2 Del Method 98.4 F 95 20 146/75 H 98 Room Air 10/15/24 10:28 10/15/24 12:59 10/15/24 12:59 10/15/24 12:59 10/15/24 12:59 10/15/24 12:59 Narrative Exam General: No acute distress; A&Ox3 Skin: Warm, dry, intact, no obvious rash. HENT: NCAT, EOMI, not icteric. External ears normal. No rhinorrhea. Moist mucous membranes Cardiovascular: Regular rate and rhythm, no murmur, +S1/S2. Respiratory: Lungs CTAB GI: NBS, soft diffuse TTP especially in left quadrants most so in the Left upper quadrant and epigastrium, non-distended. No guarding or rebound tenderness. Extremities: no edema, no cyanosis, no clubbing. Extremity pulses present Neuro: No focal deficits observed. Conversant, moving all extremities. No overt cerebellar signs/incoordination. +1 hand tremors Psychiatric: Cooperative, appropriate affect. Results: Labs 10/17/24 02:18 10/17/24 10:21 Quality Measures Quality Measures none Medications Home Medications and Allergies Home Medications ?Medication ?Instructions ?Recorded ?Confirmed ?Type hydroxyzine HCl 25 mg tablet 25 mg PO HS 10/12/24 10/15/24 History sertraline 50 mg tablet 50 mg PO Q24H 10/12/24 10/15/24 History Allergies Allergy/AdvReac Type Severity Reaction Status Date / Time No Known Allergies Allergy Verified 10/15/24 10:03 Visit Medications Acetaminophen (Acetaminophen 325 Mg Tablet) 650 mg PO Q6H PRN PRN Reason: Fever >101.5 Stop: 11/14/24 12:56 Diazepam (Diazepam Inj 5 Mg/Ml Vial 2 Ml) 5 mg IVP X1 PRN PRN Reason: Breakthrough Agitation Diazepam (Diazepam Inj 5 Mg/Ml Vial 2 Ml) 2.5 mg IVP Q2HR PRN; Protocol PRN Reason: CIWA SCORE 8-13 Stop: 10/20/24 13:00 Diazepam (Diazepam Inj 5 Mg/Ml Vial 2 Ml) 5 mg IVP Q2HR PRN; Protocol PRN Reason: CIWA SCORE 14-19 Stop: 10/20/24 13:00 Diazepam (Diazepam Inj 5 Mg/Ml Vial 2 Ml) 10 mg IVP Q2HR PRN PRN Reason: CIWA SCORE 20-25 Stop: 10/20/24 13:00 Folic Acid (Folic Acid 1 Mg Tablet) 1 mg PO QDAY [facility] Stop: 11/14/24 13:14 Octreotide Acetate 1,000 mcg/ (Sodium Chloride) 102 mls @ 5.1 mls/hr IV .Q20H [facility]; Protocol Stop: 10/20/24 13:04 Sodium Chloride (Ns) 1,000 mls @ 100 mls/hr IV .Q10H [facility] Stop: 10/16/24 13:06 Octreotide Acetate 1,000 mcg/ (Sodium Chloride) 102 mls @ 5.1 mls/hr IV .Q20H [facility]; Protocol Stop: 10/16/24 09:14 Lorazepam (Lorazepam 0.5 Mg Tablet) 0.5 mg PO Q4HR PRN PRN Reason: CIWA Score 2-6 Stop: 10/20/24 13:00 Lorazepam (Lorazepam 0.5 Mg Tablet) 1 mg PO Q4HR PRN PRN Reason: CIWA SCORE 7-11 Stop: 10/20/24 13:00 Lorazepam (Lorazepam 0.5 Mg Tablet) 2 mg PO Q4HR PRN PRN Reason: CIWA SCORE 12-15 Stop: 10/20/24 13:00 Ondansetron HCl (Ondansetron Inj 2 Mg/Ml Inj 2 Ml) 4 mg IVP Q6H PRN; Protocol PRN Reason: NAUSEA OR VOMITING Stop: 11/14/24 12:56 Oxycodone/Acetaminophen (Oxycodone/Apap 5/325 Tablet) 1 tab PO Q6H PRN PRN Reason: PAIN SCALE 4-6 (Moderate Stop: 10/20/24 12:56 Pantoprazole Sodium (Pantoprazole Inj 40 Mg Vial) 40 mg IVP BID [facility] Stop: 11/14/24 20:59 Sucralfate (Sucralfate Susp 1 Gm/10 Ml Udc) 1 gm PO QID [facility] Stop: 11/14/24 13:14 Thiamine HCl (Thiamine Inj 100 Mg/Ml Vial 2 Ml) 100 mg IVP QDAY [facility] Stop: 11/14/24 13:14 Discontinued Medications Lactated Ringer's (Lactated Ringers) 1,000 mls @ 999 mls/hr IV .Q1H1M ONE Stop: 10/15/24 11:18 Last Infusion: 10/15/24 12:46 Dose: Infused Potassium Chloride (Kcl Ivpb) 10 meq in 100 mls @ 100 mls/hr IV Q1H [facility] Stop: 10/15/24 12:24 Last Admin: 10/15/24 12:52 Dose: 100 mls/hr Octreotide Acetate (Octreotide Acet Inj 50 Mcg/Ml Vial) 50 mcg IV X1 ONE Stop: 10/15/24 13:05 Ondansetron HCl (Ondansetron Inj 2 Mg/Ml Inj 2 Ml) 4 mg IVP X1 ONE; Protocol Stop: 10/15/24 10:19 Last Admin: 10/15/24 11:32 Dose: 4 mg Pantoprazole Sodium (Pantoprazole Inj 40 Mg Vial) 80 mg IVP X1 ONE Stop: 10/15/24 12:58 Assessment & Plan Plan 23-year-old male with past medical history of alcohol use with withdrawals, anxiety, and depression comes into the ED with chief complaints of abdominal pain associated with nausea and coffee-ground emesis. #Intractable abdominal pain #High anion gap metabolic acidosis most likely secondary to lactic acidosis #Alcohol abuse Patient presented with epigastric pain. Patient has history of alcohol abuse, has withdrawn previously, reported drinking 2?3 tall can beers daily on last admission. Upon discharge two days ago he drank 2 tall cans that resulted in an episode of intractable abdominal pain after he stopped feeling drunk. In ED patient noted to have a lactic acidosis 4.7, high anion gap 18, serum bicarb 19.8 and hypokalemia (3.2). Ethyl alcohol: 156.8. Labs otherwise benign, LFTs normal. Received 2 L bolus normal saline. - Admit for observation - IVF: Normal saline at 60 mL/h x 1 L - [facility] protocol - Thiamine and folic acid supplementation - Protonix p.o. 40 mg daily - Follow lactate: 4.7 --> 4.3 - Clear liquid diet, advance as tolerated - GOBT ordered: FUP #Alcohol Withdrawals #CIWA Hx of withdrawals, very restless and agitated with mild hand tremors, states his anxiety is why he left AMA. CIWA protocols initiated. Plan: -CIWA protocol monitoring and benzos for w/drawal symptoms. #Anxiety #Depression Patient history as stated. Med rec's pending - Resume home medication when appropriate DVT prophylaxis: SCDs GI prophylaxis: Famotidine/ondansetron Diet: Clear liquid Roa: None Lines: Peripheral IV Code status: Full code Plan of care discussed with attending Dr. Andrade Fortune MD PGY?1 Attending Provider Attestation/Addendum Patient seen and examined at bedside with resident. Patient will be admitted for intractable abd pain and coffee ground emesis for EGD. Start protonix and place order for CIWA protocol given long h/o alcohol dependence. Ronnie Zafar MD
[2024-10-15 13:42] LABS: Lactate (Lactic Acid) 4.3 mMol/L (0.4-2.0)
[2024-10-15] MEDS: OCTREOTIDE ACET INJ 50 mCg/ML VIAL IV (14:04)
[2024-10-15] MEDS: SODIUM CHLORIDE 0.9% 1000 ML 1,000 ML 100 ML IV ×2 (14:05→20:10)
[2024-10-15] MEDS: OCTREOTIDE ACET INJ 1,000 MCG in SODIUM CHLORIDE 0.9% 100 ML 5.1 MCG IV (14:11)
[2024-10-15] MEDS: SUCRALFATE SUSP 1 GM/10 ML UDC PO ×2 (14:14→20:10)
[2024-10-15 14:26] VITALS: BP 143/68; PULSE 78; RESP 20; TEMP 36.8; O2SAT 96
[2024-10-15 15:44] VITALS: BMI 20.6
[2024-10-15 16:00] VITALS: BP 125/63; PULSE 69; PULSE 80; RESP 18; TEMP 36.3; O2SAT 100
[2024-10-15 16:28] LABS: Reflex Lactate? Y
[2024-10-15 17:13] LABS: Lactic Acid, 3 HR 1.2 mMol/L (0.4-2.0)
[2024-10-15 20:00] VITALS: BP 129/80; PULSE 71; PULSE 78; RESP 18; TEMP 36.7; O2SAT 99
--- NOTE | 2024-10-15 20:45 | PD.IMCONS ---
HPI Data of Consult Requesting Physician: Ronnie Zafar MD Primary Care Provider: Boyd Gifford MD Consult Narrative Reason for consult: Hematemesis, pain abdomen History of present illness: 23 years old male admitted with pain abdomen and hematemesis Hemoglobin hematocrit pretty reasonable at 15.8 and 44.6 He had come earlier to the hospital left AGAINST MEDICAL ADVICE as he was admitted while he was heading home he vomited again which was coffee-ground emesis called the ambulance and came back CT scan of the abdomen pelvis without contrast showed gastritis pattern with blood in the cavity of the stomach Patient has extensive history of alcohol abuse with alcohol withdrawals anxiety neurosis and depression cc:: cc: Ronnie Zafar MD Review of Systems Review of Systems Systems Reviewed: All systems reviewed, normal except as documented Meds Home Medications and Allergies Home Medications ?Medication ?Instructions ?Recorded ?Confirmed ?Type hydroxyzine HCl 25 mg tablet 25 mg PO HS 10/12/24 10/15/24 History sertraline 50 mg tablet 50 mg PO Q24H 10/12/24 10/15/24 History Allergies Allergy/AdvReac Type Severity Reaction Status Date / Time No Known Allergies Allergy Verified 10/15/24 10:03 Exam Vital Signs Temp Pulse Resp BP Pulse Ox O2 Del Method 97.3 F 69 18 125/63 100 Room Air 10/15/24 16:00 10/15/24 16:00 10/15/24 16:00 10/15/24 16:00 10/15/24 16:00 10/15/24 16:00 Constitutional Comments: Alert oriented Routine Respiratory Exam Comments: Normal to auscultation Results Labs 10/17/24 02:18 10/17/24 10:21 Assessment and Plan Additional Assessment & Plan Additional Plan: # Pain abdomen epigastric right upper quadrant # Coffee-ground emesis # chronic alcohol abuse Plan Agree with serial CBC IV Protonix and octreotide Consent obtained for fiberoptic esophagogastroduodenoscopy with possible biopsy possible therapeutic intervention under intravenous moderate sedation schedule for tomorrow morning N.p.o. Can have ice chips Will follow the patient thank you for the opportunity to participate in care of this patient
[2024-10-15] MEDS: HYDROmorphone INJ 2 MG/ML VIAL 1 MG IVP (21:17)
[2024-10-15 21:24] LABS: Lactate (Lactic Acid) 1.7 mMol/L (0.4-2.0)
[2024-10-15] MEDS: PROMETHAZINE INJ 25 MG/ML VIAL (21:37)
[2024-10-16] VITALS (16 sets, daily range): BP systolic 116–167; BP diastolic 56–116; PULSE 53–97; RESP 14–20; TEMP 36.2–37.1; O2SAT 97–100
[2024-10-16 00:57] LABS: OBG Card Lot # 20152; OBG Developer Expiration Date 06/30/2026; OBG Developer Lot # 75027g; OBG Performed By martc6; OBG QC OK? Yes
[2024-10-16 00:58] LABS: Occult Blood, Gastric Positive (Negative)
[2024-10-16] MEDS: SODIUM CHLORIDE 0.9% 1000 ML 1,000 ML 100 ML IV (05:40)
[2024-10-16 06:59] LABS: Thyroid Stimulating Hormone 0.17 uIU/mL (0.55-4.78)
[2024-10-16] MEDS: FOLIC ACID 1 MG TABLET PO (08:09)
[2024-10-16] MEDS: THIAMINE INJ 100 MG/ML VIAL 2 ML IVP (08:09)
[2024-10-16] MEDS: OCTREOTIDE ACET INJ 1,000 MCG in SODIUM CHLORIDE 0.9% 100 ML 5.1 MCG IV (08:18)
[2024-10-16 09:36] LABS: Basophils # (Auto) 0.0 Thou/mm3 (0.0-0.2); Basophils % (Auto) 0 % (0-2.5); Eosinophils # (Auto) 0.1 Thou/mm3 (0.0-0.5); Eosinophils % (Auto) 1 % (0-10); Hematocrit 41.2 % (41.0-53.0); Hemoglobin 14.1 g/dL (13.5-16.0); Immature Granulocytes Auto 0.02 Thou/mm3 (0.00-0.00); Lymphocytes # (Auto) 2.4 Thou/mm3 (1.0-4.8); Lymphocytes % (Auto) 33 % (10-50); Mean Corpuscular HGB Conc 34.2 g/dl (31.0-37.0); Mean Corpuscular Hemoglobin 30.9 pg (25.0-35.0); Mean Corpuscular Volume 90 fL (80-100); Monocytes # (Auto) 0.7 Thou/mm3 (0.0-0.8); Monocytes % (Auto) 9 % (0-12); Neutrophils # (Auto) 4.2 Thou/mm3 (1.8-7.7); Neutrophils % (Auto) 56 % (37-80); Nucleated Red Blood Cell # 0.00 Thou/mm3 (0.00-0.00); Nucleated Red Blood Cell % 0 /100 WBC (0); Platelet Count 225 Thou/mm3 (140-440); RDW Standard Deviation 47.2 fL (35.1-43.9); Red Blood Count 4.57 Miln/mm3 (4.50-5.90); White Blood Count 7.4 Thou/mm3 (3.8-10.6)
[2024-10-16 09:52] LABS: Alanine Aminotransferase 18 U/L (10-49); Albumin, Serum 4.0 gm/dL (3.5-5.0); Albumin/Globulin Ratio 1.8 (1.2-2.2); Alkaline Phosphatase 60 U/L (46-116); Anion Gap 12 (7-16); Aspartate Amino Transferase 22 U/L (0-34); BUN/Creatinine Ratio 9 Ratio (12-20); Bilirubin,Total 1.0 mg/dL (0.3-1.2); Blood Urea Nitrogen 9 mg/dL (9-23); Calcium 9.1 mg/dL (8.3-10.6); Calcium (Corrected) 9.1 mg/dL (8.5-10.1); Carbon Dioxide 22.6 mMol/L (20.0-31.0); Chloride 105 mMol/L (98-107); Creatinine (Component) 1.0 mg/dL (0.6-1.3); Estimated Creatinine Clearance 103.8 mL/min (>60); Globulin 2.2 gm/dL (2.3-3.5); Glucose 107 mg/dL (74-106); Magnesium 1.8 mg/dL (1.6-2.6); Osmolality,Calculated 278 (275-295); Phosphorous 3.3 mg/dL (2.4-5.1); Potassium 3.9 mMol/L (3.4-5.1); Sodium 140 mMol/L (136-145); Total Protein 6.2 gm/dL (5.7-8.2); eGFR > 60 See Note
[2024-10-16 09:53] LABS: INR 1.1 (0.9-1.3); Prothrombin Time 12.4 Seconds (9.0-12.2)
[2024-10-16 10:16] LABS: Free T4 (Free Thyroxine) 1.39 ng/dL (0.89-1.76)
--- NOTE | 2024-10-16 11:03 | PC.SS ---
Lb Bishop is a 23 year-old male admitted to [facility] for ABD Pain. SS conducted bedside contact with the patient to complete initial assessment and to discuss discharge planning. Role and reason explained. Patient confirmed demographic information. Patient identifies his mother Jael Carmichael [phone] as his surrogate decision maker. Pt states he is able to complete all ADL?s independent. Pt does not possesses any DME. Pts PCP is Balta MEHTA. Pharmacy of choice is [facility]. Discharge options discussed and the pt wishes to return home.? Pt dtr will provide transport. No further intervention required at this time, social worker assistant would be available to address any further concerns. DC Plan: Home Contact: Mother Address: Confirmed on face sheet PCP: Balta
--- NOTE | 2024-10-16 11:19 | EKG_ITS ---
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
[2024-10-16 13:25] LABS: Troponin I < 0.002 ng/mL (0.0-0.045)
[2024-10-16] MEDS: SUCRALFATE SUSP 1 GM/10 ML UDC PO ×3 (13:52→20:31)
--- NOTE | 2024-10-16 15:32 | SUR.PHASEI ---
1532 Patient arrived to recovery resting comfortably in [facility], sleeping and able to arouse with verbal prompting, on oxygen 4L via nasal cannula, breathing unlabored, vital signs stable, denies pain and nausea.
--- NOTE | 2024-10-16 16:31 | SUR.PHASEI ---
1628 Report given to Marixa ALDRICH, patient meets discharge criteria from recovery, awake and alert, sitting up eating ice chips, breathing unlabored, vital signs stable, denies pain and nausea 1631 Patient transported via gurney to room 368 without incident, patient able to walk from rney to the bed with stand-by assist from this typewriter operator automatic, patient sitting up in bed with call light in reach when this typewriter operator automatic left patients room
[2024-10-16 19:00] LABS: Troponin I < 0.020 ng/mL (0.0-0.045)
--- NOTE | 2024-10-16 19:21 | ESPR_ITS ---
<Statement entered by Jean-Pierre Mascorro MD - 10/16/24 21:06> This morning patient was seen and examined at bedside, denied any new symptoms, EKG and troponin were done to rule out ACS all of them came back normal. Most likely symptoms are secondary to severe gastritis and possible esophagitis secondary to his alcohol use disorder. His alcohol drawl are well-controlled - Patient's plan and care discussed with my attending, Dr. Joycelyn Mascorro MD Internal Medicine PGY-3 Documentation for date of: 10/16/24 Subjective Subjective Interval history: EGD performed today, biopsies performed in gastric antrum, upper and lower third of esophagus. FTH gastritis characterized by erythema. Patient examined bedside. States he is feeling overall a lot better. No BMs, no SOB, no NVD, no blood in his cough, and no SOB. Still has overall 5/10 dull abdominal pain. Exam Vital Signs Temp Pulse Resp BP Pulse Ox O2 Del Method O2 Flow Rate 98.7 F 62 14 120/69 100 Room Air 2 10/16/24 16:02 10/16/24 16:17 10/16/24 16:17 10/16/24 16:17 10/16/24 16:17 10/16/24 08:00 10/16/24 15:47 Narrative Exam General: No acute distress; A&Ox3 Skin: Warm, dry, intact, no obvious rash. HENT: NCAT, EOMI, not icteric. External ears normal. No rhinorrhea. Moist mucous membranes Cardiovascular: Regular rate and rhythm, no murmur, +S1/S2. Respiratory: Lungs CTAB GI: NBS, soft TTP especially in left quadrants most so in the Left upper quadrant and epigastrium, non-distended. No guarding or rebound tenderness. Extremities: no edema, no cyanosis, no clubbing. Extremity pulses present Neuro: No focal deficits observed. Conversant, moving all extremities. No overt cerebellar signs/incoordination. hand tremors resolved Psychiatric: Cooperative, appropriate affect. Objective Labs 10/17/24 02:18 10/17/24 10:21 Labs: Laboratory Results - last 24 hr 10/15/24 10/15/24 10/16/24 05:27 19:00 00:23 WBC Cancelled RBC Cancelled Hgb Cancelled Hct Cancelled MCV Cancelled MCH Cancelled MCHC Cancelled RDW Std Deviation Cancelled Plt Count Cancelled Neut % (Auto) Cancelled Lymph % (Auto) Cancelled [place] % (Auto) Cancelled Eos % (Auto) Cancelled Baso % (Auto) Cancelled Neut # (Auto) Cancelled Lymph # (Auto) Cancelled [place] # (Auto) Cancelled Eos # (Auto) Cancelled Baso # (Auto) Cancelled Immature Gran # (Auto) Cancelled Absolute Nucleated RBC Cancelled Immature Gran % Cancelled Nucleated RBC % Cancelled PT INR VBG pH Cancelled VBG pCO2 Cancelled VBG pO2 Cancelled VBG O2 Sat (Malena) Cancelled VBG Base Excess Cancelled Sodium Cancelled Potassium Cancelled Chloride Cancelled Carbon Dioxide Cancelled Anion Gap Cancelled BUN Cancelled Creatinine Cancelled Estim Creat Clear Calc Cancelled eGFR Cancelled BUN/Creatinine Ratio Cancelled Glucose Cancelled Calculated Osmolality Cancelled Lactic Acid Cancelled 1.7 Calcium Cancelled Corrected Calcium Cancelled Phosphorus Magnesium Total Bilirubin Cancelled AST Cancelled ALT Cancelled Alkaline Phosphatase Cancelled Troponin I Total Protein Cancelled Albumin Cancelled Globulin Cancelled Albumin/Globulin Ratio Cancelled Lipase Cancelled Procalcitonin Cancelled TSH Free T4 Gastric Occult Blood Positive A Ethyl Alcohol Cancelled 10/16/24 10/16/24 10/16/24 04:40 07:47 12:04 WBC 7.4 RBC 4.57 Hgb 14.1 Hct 41.2 MCV 90 MCH 30.9 MCHC 34.2 RDW Std Deviation 47.2 H Plt Count 225 D Neut % (Auto) 56 Lymph % (Auto) 33 [place] % (Auto) 9 Eos % (Auto) 1 Baso % (Auto) 0 Neut # (Auto) 4.2 Lymph # (Auto) 2.4 [place] # (Auto) 0.7 Eos # (Auto) 0.1 Baso # (Auto) 0.0 Immature Gran # (Auto) 0.02 H Absolute Nucleated RBC 0.00 Immature Gran % 0 Nucleated RBC % 0 PT 12.4 H INR 1.1 VBG pH VBG pCO2 VBG pO2 VBG O2 Sat (Malena) VBG Base Excess Sodium 140 Potassium 3.9 D Chloride 105 Carbon Dioxide 22.6 Anion Gap 12 BUN 9 Creatinine 1.0 Estim Creat Clear Calc 103.8 eGFR > 60 BUN/Creatinine Ratio 9 L Glucose 107 H Calculated Osmolality 278 Lactic Acid Calcium 9.1 Corrected Calcium 9.1 Phosphorus 3.3 Magnesium 1.8 Total Bilirubin 1.0 D AST 22 ALT 18 Alkaline Phosphatase 60 D Troponin I < 0.002 Total Protein 6.2 Albumin 4.0 D Globulin 2.2 L Albumin/Globulin Ratio 1.8 Lipase Procalcitonin TSH 0.17 L Free T4 1.39 Gastric Occult Blood Ethyl Alcohol 10/16/24 18:17 WBC RBC Hgb Hct MCV MCH MCHC RDW Std Deviation Plt Count Neut % (Auto) Lymph % (Auto) [place] % (Auto) Eos % (Auto) Baso % (Auto) Neut # (Auto) Lymph # (Auto) [place] # (Auto) Eos # (Auto) Baso # (Auto) Immature Gran # (Auto) Absolute Nucleated RBC Immature Gran % Nucleated RBC % PT INR VBG pH VBG pCO2 VBG pO2 VBG O2 Sat (Malena) VBG Base Excess Sodium Potassium Chloride Carbon Dioxide Anion Gap BUN Creatinine Estim Creat Clear Calc eGFR BUN/Creatinine Ratio Glucose Calculated Osmolality Lactic Acid Calcium Corrected Calcium Phosphorus Magnesium Total Bilirubin AST ALT Alkaline Phosphatase Troponin I < 0.020 Total Protein Albumin Globulin Albumin/Globulin Ratio Lipase Procalcitonin TSH Free T4 Gastric Occult Blood Ethyl Alcohol ABG Interpretation ABG results: 10/15/24 05:27 VBG pH Cancelled VBG pCO2 Cancelled VBG pO2 Cancelled VBG Base Excess Cancelled Quality Measures Quality Measures none Assessment & Plan Assessment Current Active Medications: Generic Name Dose Route Start Last Admin Trade Name Freq PRN Reason Stop Dose Admin Acetaminophen 650 mg 10/15/24 12:57 Acetaminophen 325 Mg Tablet PO 11/14/24 12:56 Q6H PRN Fever >101.5 Diazepam 5 mg 10/15/24 13:01 Diazepam Inj 5 Mg/Ml Vial 2 Ml IVP X1 PRN Breakthrough Agitation Diazepam 2.5 mg 10/15/24 13:01 Diazepam Inj 5 Mg/Ml Vial 2 Ml IVP 10/20/24 13:00 Q2HR PRN CIWA SCORE 8-13 Protocol Diazepam 5 mg 10/15/24 13:01 Diazepam Inj 5 Mg/Ml Vial 2 Ml IVP 10/20/24 13:00 Q2HR PRN CIWA SCORE 14-19 Protocol Diazepam 10 mg 10/15/24 13:01 Diazepam Inj 5 Mg/Ml Vial 2 Ml IVP 10/20/24 13:00 Q2HR PRN CIWA SCORE 20-25 Folic Acid 1 mg 10/16/24 09:00 10/16/24 08:09 Folic Acid 1 Mg Tablet PO 11/14/24 13:14 1 mg QDAY FAVIAN Administration Hydromorphone HCl 1 mg 10/15/24 21:02 10/15/24 21:17 Hydromorphone Inj 2 Mg/Ml Vial IVP 10/20/24 21:01 1 mg Q4HR PRN Administration PAIN Promethazine HCl 12.5 mg/ 50.5 mls @ 2.5 mls/min 10/15/24 21:03 Sodium Chloride IV 11/14/24 21:02 Q4HR PRN NAUSEA OR VOMITING Lorazepam 0.5 mg 10/15/24 13:01 10/15/24 14:10 Lorazepam 0.5 Mg Tablet PO 10/20/24 13:00 0.5 mg Q4HR PRN Administration CIWA Score 2-6 Lorazepam 1 mg 10/15/24 13:01 Lorazepam 0.5 Mg Tablet PO 10/20/24 13:00 Q4HR PRN CIWA SCORE 7-11 Lorazepam 2 mg 10/15/24 13:01 Lorazepam 0.5 Mg Tablet PO 10/20/24 13:00 Q4HR PRN CIWA SCORE 12-15 Ondansetron HCl 4 mg 10/15/24 12:57 10/15/24 20:56 Ondansetron Inj 2 Mg/Ml Inj 2 Ml IVP 11/14/24 12:56 4 mg Q6H PRN Administration NAUSEA OR VOMITING Protocol Pantoprazole Sodium 40 mg 10/15/24 21:00 10/16/24 08:10 Pantoprazole Inj 40 Mg Vial IVP 11/14/24 20:59 40 mg BID FAVIAN Administration Sucralfate 1 gm 10/15/24 13:15 10/16/24 17:05 Sucralfate Susp 1 Gm/10 Ml Udc PO 11/14/24 13:14 1 gm QID FAVIAN Administration Thiamine HCl 100 mg 10/16/24 09:00 10/16/24 08:09 Thiamine Inj 100 Mg/Ml Vial 2 Ml IVP 11/14/24 13:14 100 mg QDAY FAVIAN Administration Plan 23-year-old male with past medical history of alcohol use with withdrawals, anxiety, and depression comes into the ED with chief complaints of abdominal pain associated with nausea and coffee-ground emesis. #PUD #Intractable abdominal pain #High anion gap metabolic acidosis most likely secondary to lactic acidosis #Alcohol abuse Patient presented with epigastric pain. Patient has history of alcohol abuse, has withdrawn previously, reported drinking 2?3 tall can beers daily on last admission. Upon discharge two days ago he drank 2 tall cans that resulted in an episode of intractable abdominal pain after he stopped feeling drunk. In ED patient noted to have a lactic acidosis 4.7, high anion gap 18, serum bicarb 19.8 and hypokalemia (3.2). Ethyl alcohol: 156.8. Labs otherwise benign, LFTs normal. Received 2 L bolus normal saline. EGD revealed multiple PUDs. - Admit for observation - IVF: Normal saline at 60 mL/h x 1 L - CIWA protocol - Thiamine and folic acid supplementation - Protonix p.o. 40 mg daily - Follow lactate: 4.7 --> 4.3 - Clear liquid diet, advance as tolerated - GOBT ordered: FUP - Rocephin prophylaxis x4 days - FUP EGD bx #Alcohol Withdrawals #CIWA Hx of withdrawals, very restless and agitated with mild hand tremors, states his anxiety is why he left AMA. CIWA protocols initiated. Plan: -CIWA protocol monitoring and benzos for w/drawal symptoms. #Anxiety #Depression Patient history as stated. Med rec's pending - Resume home medication when appropriate #Subclinical Hypothyroidism Continue to monitor. TSH: 0.17, Free T4:1.39. DVT prophylaxis: SCDs GI prophylaxis: Famotidine/ondansetron Diet: PUD Roa: None Lines: Peripheral IV Code status: Full code Plan of care discussed with attending Dr. Hirsch and supervising resident Dr. Ludwin Fortune MD PGY?1 Attending Provider Attestation/Addendum I have examined the patient, reviewed labs and imaging findings, discussed the case with the resident(s), and reviewed entered orders. I agree with the plan of care as outlined in this note, with these additional summaries/recommendations: Patient seen at bedside. No acute overnight events. Patient admitted for acute encephalopathy most likely secondary to alcohol intoxication. He endorses daily alcohol use and currently on CIWA. Patient also diagnosed with GI bleed. FOBT positive on admission. Continue novreotide gtt., IV Protonix, and car for rate. Continue n.p.o. status. In-house gastroenterology consulted with plans for EGD today. Add Rocephin to patient's regimen. Patient counseled on alcohol cessation. Low TSH and order free T4. Patient updated on the plan and agreement. All questions answered to satisfaction. Please see residents note for additional details and management. Dr. Joycelyn MD
[2024-10-16] MEDS: cefTRIAXone/D5w 1gm IV premix 1 GM/50 ML BAG IV (20:36)
--- NOTE | 2024-10-16 21:00 | PC.NURSE ---
Patient is requesting medication for sleep.Dr. Gutiérrez made aware with new order carried out.
[2024-10-17] VITALS: BP 123/64; PULSE 49; PULSE 59; RESP 16; TEMP 36.2; O2SAT 100
[2024-10-17 02:41] LABS: INR 1.2 (0.9-1.3); Prothrombin Time 12.6 Seconds (9.0-12.2)
[2024-10-17 02:45] LABS: Troponin I < 0.020 ng/mL (0.0-0.045)
[2024-10-17 04:00] VITALS: BP 125/62; PULSE 55; PULSE 56; RESP 15; TEMP 36.3; O2SAT 99
[2024-10-17] MEDS: SUCRALFATE SUSP 1 GM/10 ML UDC PO ×2 (05:31→12:42)
[2024-10-17 08:00] VITALS: BP 118/60; PULSE 55; PULSE 68; RESP 18; TEMP 36.2; O2SAT 98
[2024-10-17] MEDS: FOLIC ACID 1 MG TABLET PO (08:36)
[2024-10-17] MEDS: THIAMINE INJ 100 MG/ML VIAL 2 ML IVP (08:36)
[2024-10-17 09:00] LABS: Basophils # (Auto) 0.0 Thou/mm3 (0.0-0.2); Basophils % (Auto) 1 % (0-2.5); Eosinophils # (Auto) 0.1 Thou/mm3 (0.0-0.5); Eosinophils % (Auto) 2 % (0-10); Hematocrit 41.7 % (41.0-53.0); Hemoglobin 14.3 g/dL (13.5-16.0); Immature Granulocytes Auto 0.02 Thou/mm3 (0.00-0.00); Lymphocytes # (Auto) 3.2 Thou/mm3 (1.0-4.8); Lymphocytes % (Auto) 40 % (10-50); Mean Corpuscular HGB Conc 34.3 g/dl (31.0-37.0); Mean Corpuscular Hemoglobin 31.4 pg (25.0-35.0); Mean Corpuscular Volume 91 fL (80-100); Monocytes # (Auto) 0.6 Thou/mm3 (0.0-0.8); Monocytes % (Auto) 8 % (0-12); Neutrophils # (Auto) 3.9 Thou/mm3 (1.8-7.7); Neutrophils % (Auto) 49 % (37-80); Nucleated Red Blood Cell # 0.00 Thou/mm3 (0.00-0.00); Nucleated Red Blood Cell % 0 /100 WBC (0); Platelet Count 207 Thou/mm3 (140-440); RDW Standard Deviation 47.4 fL (35.1-43.9); Red Blood Count 4.56 Miln/mm3 (4.50-5.90); White Blood Count 7.9 Thou/mm3 (3.8-10.6)
[2024-10-17 10:59] LABS: Alanine Aminotransferase 14 U/L (10-49); Albumin, Serum 4.3 gm/dL (3.5-5.0); Albumin/Globulin Ratio 1.8 (1.2-2.2); Alkaline Phosphatase 63 U/L (46-116); Anion Gap 12 (7-16); Aspartate Amino Transferase 17 U/L (0-34); BUN/Creatinine Ratio 13 Ratio (12-20); Bilirubin,Total 0.5 mg/dL (0.3-1.2); Blood Urea Nitrogen 10 mg/dL (9-23); Calcium 9.5 mg/dL (8.3-10.6); Calcium (Corrected) 9.5 mg/dL (8.5-10.1); Carbon Dioxide 25.2 mMol/L (20.0-31.0); Chloride 103 mMol/L (98-107); Creatinine (Component) 0.8 mg/dL (0.6-1.3); Estimated Creatinine Clearance 129.7 mL/min (>60); Globulin 2.4 gm/dL (2.3-3.5); Glucose 95 mg/dL (74-106); Magnesium 1.6 mg/dL (1.6-2.6); Osmolality,Calculated 278 (275-295); Phosphorous 2.5 mg/dL (2.4-5.1); Potassium 3.6 mMol/L (3.4-5.1); Sodium 140 mMol/L (136-145); Total Protein 6.7 gm/dL (5.7-8.2); eGFR > 60 See Note
[2024-10-17 12:00] VITALS: BP 126/60; PULSE 72; PULSE 97; RESP 20; TEMP 36.7; O2SAT 99
--- NOTE | 2024-10-17 13:10 | PC.SS ---
Rounding: DC home today, no needs identified
--- NOTE | 2024-10-17 14:11 | ESDS_ITS ---
<Statement entered by Jean-Pierre Mascorro MD - 10/17/24 20:28> Patient was seen and examined at bedside. I agree on the discharge note. - Patient's plan and care discussed with my attending, Dr. Helen Mascorro MD Internal Medicine PGY-3 Planned Discharge Date 10/17/24 DS: Providers Provider Date of admission: 10/15/24 12:57 Primary care physician: Boyd Gifford MD Admitting Provider: Ronnie Zafar MD Attending Provider on Admission: Joni Hirsch MD Consults: 10/15/24 12:59 Consult to Gastroenterology Routine Comment: coffee ground emesis Consulting Provider: Jyoti Malcolm 10/15/24 15:50 [facility] Referral - Transportation Routine Comment: Positive screening for transportation needs. Attending Provider on DC: Dr. Cervantes Discharging Provider: Dr. Cervantes DS: Diagnosis Problem List Completed Was Problem List Reviewed/Reconciled?: Yes Hospital Course Hospital Course Hospital course: 23-year-old male with past medical history of alcohol use with withdrawals, anxiety, and depression comes into the ED with chief complaints of abdominal pain associated with nausea and coffee-ground emesis. Upon discharge two days ago he drank 2 tall cans that resulted in an episode of intractable abdominal pain after he stopped feeling drunk. 2 days later. in ED patient noted to have a lactic acidosis 4.7, high anion gap 18, serum bicarb 19.8 and hypokalemia (3.2). Ethyl alcohol: 156.8. Labs otherwise benign, LFTs normal. Received 2 L bolus normal saline. Patient admitted for intractable abdominal pain. lactatic acidosis resolved. He was started on Rocephin prophylaxis and CIWA protocols. Started on PPIs sucrasalfate and octreotide and given thiamine and fluids. GI consulted. EGD revealed gastritis and esophagitis, multiple biopsies taken awaiting pathology. Pain resolved and patient safe to discharge. Discharge Instructions: Follow up with doctor within one week from discharge to get the pathology report. Follow up with the health care marketing manager within one to two weeks from discharge Avoid Alcohol drinking as it causing liver damage and may lead to cirrhosis In case of worsening of your symptoms please return to the ED as soon as possible Use Meds as prescribed. #Gasteritis #Esophagitis #Intractable abdominal pain #High anion gap metabolic acidosis most likely secondary to lactic acidosis #Alcohol abuse #Alcohol Withdrawals #CIWA #Anxiety #Depression #Subclinical Hypothyroidism Patient's plan and care discussed with my attending, Dr. Cervantes, and supervising residents Jean-Pierre Mascorro MD, and MD Medhat French MD Internal Medicine PGY-1 Time Spent with Patient Time attestation: Total time spent providing and/or coordinating discharge services: Time spent: Greater than 30 minutes Exam Vital Signs Temp Pulse Resp BP Pulse Ox O2 Del Method O2 Flow Rate 98.1 F 72 20 126/60 99 Room Air 2 10/17/24 12:00 10/17/24 12:00 10/17/24 12:10/17/24 12:10/17/24 12:10/17/24 12:00 10/16/24 15:47 Narrative Exam General: No acute distress; A&Ox3 Skin: Warm, dry, intact, no obvious rash. HENT: NCAT, EOMI, not icteric. External ears normal. No rhinorrhea. Moist mucous membranes Cardiovascular: Regular rate and rhythm, no murmur, +S1/S2. Respiratory: Lungs CTAB GI: NBS, soft NTTP non-distended. No guarding or rebound tenderness. Extremities: no edema, no cyanosis, no clubbing. Extremity pulses present Neuro: No focal deficits observed. Conversant, moving all extremities. No overt cerebellar signs/incoordination. hand tremors resolved Psychiatric: Cooperative, appropriate affect. Discharge Plan Plan Patient Disposition: HOME (Self Care) Patient condition on transfer: Benefits outweigh risks Care Plan Goals: Discharge instructions: Follow up with doctor within one week from discharge to get the pathology report. Follow up with the health care marketing manager within one to two weeks from discharge Avoid Alcohol drinking as it causing liver damage and may lead to cirrhosis In case of worsening of your symptoms please return to the ED as soon as possible Use Meds as prescribed. Prescriptions/Referrals Prescriptions/Med Rec: New sucralfate 100 mg/mL Suspension 1 g PO QID 5 Days Qty: 200 0RF pantoprazole 40 mg tablet,delayed release (DR/EC) 40 mg PO QDAY 14 Days Qty: 14 0RF Continued ondansetron 4 mg tablet,disintegrating 4 mg PO Q8H PRN (Reason: nausea and vomiting) Qty: 10 0RF hydroxyzine HCl 25 mg tablet 25 mg PO HS Patient Comments: TAKE ONE TABLET BY MOUTH AT BEDTIME sertraline 50 mg tablet 50 mg PO Q24H Patient Comments: TAKE ONE TABLET BY MOUTH EVERY DAY Discontinued famotidine [Pepcid] 20 mg tablet 20 mg PO QDAY Qty: 30 0RF Referrals: Boyd Gifford MD [Primary Care Provider] - Patient/Caregiver Discharge Instructions Discharge Activity: activity as tolerated Education Materials: Social Drinking vs Problem Drinking, ED Alcohol Abuse Print Language: Telugu Stand Alone Forms: Abigail Award Info., Patient Portal Info Letter Discharge Order Discharge Orders: Discharge (Routine); Ordered 10/17/24 Ordered By: Jean-Pierre Mascorro Quality Discharge Quality Measures VTE prophylaxis MD Attestestation Attestation I have discussed and was present for the essential components of the discharge history, physical examination, diagnosis, and discharge treatment plan with the resident. I agree with the patient's discharge care as documented by the resident and amended herein by me. Stanton Cervantes DO. The patient understood all discharge instructions, all questions were answered satisfactorily. The patient was instructed to return to the Emergency Department is symptoms worsened or persisted. Patient was stable, afebrile, tolerating p.o. intake at time of discharge home. Although this document has been carefully reviewed, there may still be some phonetic and other typographical errors. These errors are purely grammatical due to imperfections in the software program and should not be construed in any way to compromise the substance of the patient's medical care during this visit.
--- NOTE | 2024-10-17 20:40 | PD.IMPROG ---
Documentation for date of: 10/17/24 Subjective Subjective Interval history: Late entry for the note Upper endoscopy shows Gastritis and esophagitis Hemoglobin hematocrit stable at 14.3 and 41.7 Okay to discharge patient Exam Vital Signs Temp Pulse Resp BP Pulse Ox O2 Del Method O2 Flow Rate 98.1 F 72 20 126/60 99 Room Air 2 10/17/24 12:00 10/17/24 12:00 10/17/24 12:00 10/17/24 12:00 10/17/24 12:00 10/17/24 12:00 10/16/24 15:47 Objective Labs 10/17/24 02:18 10/17/24 10:21 Labs: Laboratory Results - last 24 hr 10/17/24 10/17/24 02:18 10:21 WBC 7.9 RBC 4.56 Hgb 14.3 Hct 41.7 MCV 91 MCH 31.4 MCHC 34.3 RDW Std Deviation 47.4 H Plt Count 207 Neut % (Auto) 49 Lymph % (Auto) 40 [place] % (Auto) 8 Eos % (Auto) 2 Baso % (Auto) 1 Neut # (Auto) 3.9 Lymph # (Auto) 3.2 [place] # (Auto) 0.6 Eos # (Auto) 0.1 Baso # (Auto) 0.0 Immature Gran # (Auto) 0.02 H Absolute Nucleated RBC 0.00 Immature Gran % 0 Nucleated RBC % 0 PT 12.6 H INR 1.2 Sodium 140 Potassium 3.6 Chloride 103 Carbon Dioxide 25.2 Anion Gap 12 BUN 10 Creatinine 0.8 Estim Creat Clear Calc 129.7 eGFR > 60 BUN/Creatinine Ratio 13 Glucose 95 Calculated Osmolality 278 Calcium 9.5 Corrected Calcium 9.5 Phosphorus 2.5 Magnesium 1.6 Total Bilirubin 0.5 D AST 17 ALT 14 Alkaline Phosphatase 63 Troponin I < 0.020 Total Protein 6.7 Albumin 4.3 Globulin 2.4 Albumin/Globulin Ratio 1.8 Impressions Impression: Esophagitis Gastritis Okay to discharge patient to be followed by the PCP ABG Interpretation ABG results: 10/15/24 05:27 VBG pH Cancelled VBG pCO2 Cancelled VBG pO2 Cancelled VBG Base Excess Cancelled Assessment & Plan A&P Narrative # Pain abdomen epigastric right upper quadrant # Coffee-ground emesis # chronic alcohol abuse Plan Agree with serial CBC IV Protonix and octreotide Consent obtained for fiberoptic esophagogastroduodenoscopy with possible biopsy possible therapeutic intervention under intravenous moderate sedation schedule for tomorrow morning N.p.o. Can have ice chips Will follow the patient thank you for the opportunity to participate in care of this patient Time Spent With Patient Time: Total time spent is greater than 50% in coordination of care (as documented) at patient's floor/unit and/or counseling patient:
== END 2024-10-17 13:03 | disposition home or self-care (01) | DRG 775 ==
LOC: SERX 11:00 → SERHOLD 13:09 → S3SX 10-16 07:09
PROVIDERS: Specialist; Student in an Organized Health Care Education/Training Program; Admitting Provider Student in an Organized Health Care Education/Training Program; PCP Family Medicine; Visit Provider Student in an Organized Health Care Education/Training Program
PROC: 0DB48ZX Excision of Esophagogastric Junction, Via Natural or Artificial Opening Endoscopic, Diagnostic (ICD-10-PCS; CPT 43239; principal; 2024-10-16 13:30)
DX: F10.239 Alcohol dependence with withdrawal, unspecified (principal); F41.1 Generalized anxiety disorder; F32.A Depression, unspecified; E87.6 Hypokalemia; E87.20 Acidosis, unspecified; F10.229 Alcohol dependence with intoxication, unspecified; K27.4 Chronic or unspecified peptic ulcer, site unspecified, with hemorrhage; E03.8 Other specified hypothyroidism; K29.70 Gastritis, unspecified, without bleeding; G93.40 Encephalopathy, unspecified; F41.9 Anxiety disorder, unspecified; K20.91 Esophagitis, unspecified with bleeding; Z53.29 Procedure and treatment not carried out because of patient's decision for other reasons
CPT/HCPCS: 36415; 80053; 80307; 80320; 81001; 82271; 82803; 83605; 83690; 83735; 84100; 84145; 84439; 84443; 84484; 85025; 85610; 87040; 87081; 93005; 93225; 96361; 96365; 96375; 99284; A4649; J0696; J1171; J1200; J2175; J2250; J2354; J2405; J2470; J2550; J3010; J3411; J3480; J7030; J7050; J7120; A9270; G0480

== ENCOUNTER 2024-10-18 03:42 | Emergency (ER) | payer MEDICAID, SELFPAY ==
[2024-10-18 03:42] VITALS: BMI 20.7
[2024-10-18 03:50] VITALS: BP 153/81; PULSE 85; RESP 19; TEMP 36.7; O2SAT 98
[2024-10-18 04:36] VITALS: BP 128/95; PULSE 78; RESP 14; TEMP 37.2; O2SAT 99
[2024-10-18] MEDS: SODIUM CHLORIDE 0.9% 1000 ML 1,000 ML 999 ML IV (04:51)
[2024-10-18] MEDS: METOCLOPRAMIDE INJ 5 MG/ML VIAL 2 ML 10 MG IVP (04:52)
[2024-10-18] MEDS: ONDANSETRON INJ 2 MG/ML INJ 2 ML 4 MG IVP ×2 (04:52→08:25)
--- NOTE | 2024-10-18 04:52 | PD.EDABDPN ---
ED Abdominal Pain RME/HPI General Chief Complaint: Nausea/Vomiting/Diarrhea Stated complaint: N/V/ ABD PAIN Time seen by provider: 10/18/24 03:59 Arrival date/time: 10/18/24 03:42 23M with history of alcohol/drug use presents to ED with continued epigastric pain and N/V. Patient was discharged yesterday from upstairs for alcoholic gastritis/esophagitis diagnosed with EGD. Patient states he hasn't been drinking or doing more drugs. Patient denies feeling like this is alcohol withdrawal. Limitations: no limitations Related Data Home Medications ?Medication ?Instructions ?Recorded ?Confirmed hydroxyzine HCl 25 mg tablet 25 mg PO HS 10/12/24 10/15/24 sertraline 50 mg tablet 50 mg PO Q24H 10/12/24 10/15/24 Previous Rx's ?Medication ?Instructions ?Recorded ondansetron 4 mg disintegrating 4 mg PO Q8H PRN nausea and 04/26/22 tablet vomiting #10 tabs pantoprazole 40 mg tablet,delayed 40 mg PO QDAY 14 days #14 tabs 10/17/24 release sucralfate 100 mg/mL oral 1 g (10 mL) PO QID 5 days #200 mL 10/17/24 suspension Allergies Allergy/AdvReac Type Severity Reaction Status Date / Time No Known Allergies Allergy Verified 10/18/24 03:44 Review of Systems Review of Systems Systems Reviewed: All systems reviewed, normal except as documented Constitutional Constitutional: Reports system reviewed and no additional complaints, except as documented, Denies fever(s) and Denies headache(s) ENT Ears, Nose, Mouth, and Throat: Denies disequilibrium and Denies headache(s) Cardiovascular Cardiovascular: Reports system reviewed and no additional complaints, except as documented, Denies chest pain and Denies dyspnea Respiratory Respiratory: Reports system reviewed and no additional complaints, except as documented, Denies cough and Denies dyspnea Gastrointestinal Gastrointestinal: Reports system reviewed and no additional complaints, except as documented, Reports as per HPI, Reports abdominal pain, Reports nausea and Reports vomiting Neurologic Neurologic: Reports system reviewed and no additional complaints, except as documented, Denies confusion, Denies disequilibrium and Denies headache(s) Psychiatric Psychiatric: Denies confusion Past Medical History Past Medical History NEUROLOGIC: Negative Seizures CARDIAC: Negative Cardiac Disorders or Congestive Heart Failure RESPIRATORY: Negative Chronic Obstructive Pulmonary Disease (COPD) or Asthma GENITOURINARY: Negative Renal Disease ENDOCRINE: Negative Diabetes Mellitus Type 1 or Diabetes Mellitus Type 2 HEMATOLOGIC: Negative Sickle Cell Disease PSYCHO/SOCIAL: Positive Recreational Drug Use and Depression OTHER HISTORY: Negative Blood Transfusions, Blood Transfusion Reaction or Anesthesia Reactions Social History SMOKING STATUS: Never smoker SUBSTANCE USE: marijuana ED Exam General Limitations: Present no limitations General appearance: Present alert and in distress Head Head exam: Present atraumatic Eye Eye exam: Present normal appearance, PERRL and EOMI ENT ENT exam: Present normal exam, normal oropharynx and mucous membranes moist Neck Neck exam: Present normal inspection, full ROM and trachea midline Chest Chest inspection: Present normal inspection and symmetric chest wall rise Respiratory Respiratory exam: Present normal lung sounds bilaterally Cardiovascular Cardiovascular exam: Present regular rate, normal rhythm and normal heart sounds Abdominal Exam Abdominal exam: Present soft and normal bowel sounds Extremities Exam Extremities exam: Present normal inspection and full ROM Back Exam Back exam: Present normal inspection and full ROM Neurological Exam Neurological exam: Present alert, oriented X3 and CN II-XII intact Psychiatric Psychiatric exam: Present normal affect and normal mood Skin Skin exam: Present warm, dry, intact and normal color Course Quality Measures none Orders Category Date Time Status CT Screening NOW Care 10/18/24 08:01 Completed EKG (ED ONLY) *Do not use* NOW Care 10/18/24 08:01 Completed Insert IV NOW Care 10/18/24 04:[address] chest w con Stat Exams 10/18/24 08:01 Completed CXR [XR chest 1V] Stat Exams 10/18/24 08:01 Completed EKG (ED Only) Stat Exams 10/18/24 08:01 Draft Alcohol, Blood Medical Stat Lab 10/18/24 04:45 Completed CBC Stat Lab 10/18/24 04:45 Completed CMP [Comprehensive Metabolic Panel] Stat Lab 10/18/24 04:45 Completed CMP [Comprehensive Metabolic Panel] Stat Lab 10/18/24 08:14 Completed Lipase Stat Lab 10/18/24 04:45 Completed Magnesium Stat Lab 10/18/24 04:45 Completed Troponin I Stat Lab 10/18/24 04:45 Completed Troponin I Stat Lab 10/18/24 08:14 Completed Diazepam Inj [Valium Inj] Med 10/18/24 05:34 Discontinued 10 mg IVP X1 ONE DiphenhydrAMINE INJ [Benadryl Inj] Med 10/18/24 04:00 Discontinued 12.5 mg IVP X1 ONE Lidocaine 2% Viscous [Xylocaine 2% Viscous] Med 10/18/24 05:37 Discontinued 15 ml PO X1 ONE Metoclopramide Inj [Reglan Inj] Med 10/18/24 04:00 Discontinued 10 mg IVP X1 ONE Morphine Inj Med 10/18/24 08:02 Discontinued 4 mg IVP NOW ONE Ondansetron Inj [Zofran Inj] Med 10/18/24 04:00 Discontinued 4 mg IVP X1 ONE Ondansetron Inj [Zofran Inj] Med 10/18/24 08:01 Discontinued 4 mg IVP X1 ONE POTASSIUM CHL 10 mEq IVPB [Kcl Ivpb] Med 10/18/24 07:57 Discontinued 10 meq in 100 ml IV Q1H Pantoprazole Inj [Protonix Inj] Med 10/18/24 04:00 Discontinued 80 mg IVP X1 ONE Potassium Chloride [K-Dur] Med 10/18/24 05:34 Discontinued 40 meq PO X1 ONE Sodium Chloride 0.9% 1000 ml [Ns] 1,000 ml Med 10/18/24 04:00 Discontinued IV 999 mls/hr Sodium Chloride 0.9% 250 ml [Ns] 250 ml Med 10/18/24 08:33 Discontinued IV 80 mls/hr Vital Signs Vital signs: Vital Signs Temperature 98.1 F 10/18/24 03:50 Pulse Rate 85 10/18/24 03:50 Respiratory Rate 19 10/18/24 03:50 Blood Pressure 153/81 H 10/18/24 03:50 Pulse Oximetry (%) 98 10/18/24 03:50 Oxygen Delivery Method Room Air 10/18/24 03:50 O2 at 98% on RA and WNLs Abdominal Pain MDM MDM Narrative MDM Narrative:: 23M with history of alcohol/drug use presents to ED with continued epigastric pain and N/V. Patient was discharged yesterday from upstairs for alcoholic gastritis/esophagitis diagnosed with EGD. Patient states he hasn't been drinking or doing more drugs. Patient denies feeling like this is alcohol withdrawal. Physical exam reveals mild epigastric tenderness. Patient is afebrile, alert, but appears to be in pain. No leukocytosis or anemia. CMP remarkable for K of 2.7. Mag pending. Lipase and alcohol normal. Care signed out to Dr. Ku pending dispo. Patient eventually discharged. Mag was normal. K was repleted with combo of oral and IV K. Patient data External records reviewed:: [facility] previous records Clinical information provided by:: patient Social determinants that could affect healthcare access:: alcohol use Patient has the following chronic illnesses:: alcohol/drug use How is presenting disease/condition affected by chronic disease/condition?: caused by Evaluation data The following diagnostics were reviewed and interpreted by me:: lab results Lab and/or radiology exams considered but not ordered:: ordered Interpretation Summary: above Medications / Prescriptions Medications or Prescriptions considered but not ordered:: ordered Medication administrations:: Medication Administration History Discontinued Medications Diazepam (Diazepam Inj 5 Mg/Ml Vial 2 Ml) 10 mg IVP X1 ONE Stop: 10/18/24 05:35 Last Admin: 10/18/24 06:01 Dose: 10 mg Documented By: MAXI Diphenhydramine HCl (Diphenhydramine Inj 50 Mg/Ml Vial) 12.5 mg IVP X1 ONE Stop: 10/18/24 04:01 Last Admin: 10/18/24 04:52 Dose: 12.5 mg Documented By: MAXI Sodium Chloride (Ns) 1,000 mls @ 999 mls/hr IV .Q1H1M ONE Stop: 10/18/24 05:00 Last Infusion: 10/18/24 07:46 Dose: Infused Documented By: Admin: 10/18/24 04:51 Dose: 999 mls/hr Documented By: MAXI Potassium Chloride (Kcl Ivpb) 10 meq in 100 mls @ 100 mls/hr IV Q1H FAVIAN Stop: 10/18/24 09:56 Last Infusion: 10/18/24 10:53 Dose: Infused Documented By: Admin: 10/18/24 09:40 Dose: 100 mls/hr Documented By: Infusion: 10/18/24 09:30 Dose: Infused Documented By: Admin: 10/18/24 08:30 Dose: 100 mls/hr Documented By: FLOWER Sodium Chloride (Ns) 250 mls @ 80 mls/hr IV .Q3H8M ONE Stop: 10/18/24 11:40 Last Infusion: 10/18/24 12:49 Dose: Infused Documented By: Admin: 10/18/24 08:47 Dose: 80 mls/hr Documented By: FLOWER Lidocaine HCl (Lidocaine Viscous 2% 15 Ml Udc) 15 ml PO X1 ONE Stop: 10/18/24 05:38 Last Admin: 10/18/24 06:00 Dose: 15 ml Documented By: MAXI Metoclopramide HCl (Metoclopramide Inj 5 Mg/Ml Vial 2 Ml) 10 mg IVP X1 ONE; Protocol Stop: 10/18/24 04:01 Last Admin: 10/18/24 04:52 Dose: 10 mg Documented By: MAXI Morphine Sulfate (Morphine Sulf Inj 10 Mg/Ml Vial) 4 mg IVP NOW ONE Stop: 10/18/24 08:03 Last Admin: 10/18/24 08:25 Dose: 4 mg Documented By: FLOWER Ondansetron HCl (Ondansetron Inj 2 Mg/Ml Inj 2 Ml) 4 mg IVP X1 ONE; Protocol Stop: 10/18/24 04:01 Last Admin: 10/18/24 04:52 Dose: 4 mg Documented By: MAXI Ondansetron HCl (Ondansetron Inj 2 Mg/Ml Inj 2 Ml) 4 mg IVP X1 ONE; Protocol Stop: 10/18/24 08:02 Last Admin: 10/18/24 08:25 Dose: 4 mg Documented By: FLOWER Pantoprazole Sodium (Pantoprazole Inj 40 Mg Vial) 80 mg IVP X1 ONE Stop: 10/18/24 04:01 Last Admin: 10/18/24 04:51 Dose: 80 mg Documented By: MAXI Potassium Chloride (Potassium Chloride 20 Meq Tabcr) 40 meq PO X1 ONE Stop: 10/18/24 05:35 Last Admin: 10/18/24 06:01 Dose: 40 meq Documented By: MAXI above Consultations Consultation(s) initiated? (list below): No Diagnosis Differential diagnosis abdominal pain: abdominal pain, acute appendicitis, calculus of kidney, constipation, diverticulitis, gastroenteritis, pancreatitis, small bowel obstruction and other (gastritis) Most likely diagnosis given after review of the tests above:: gastritis Admission Indicated Admission indicated?: not indicated Admission Request Was there a request for admission?: No Disposition Plan Disposition Plan: Discharge Discharge Attestation Discharge Attestation: The patient and all family members were given an opportunity to ask questions and understood the discharge instructions. Discharge instructions specifically effects, indications for sooner follow up or return to the emergency department, and the expected course of current diagnosis. Patient condition: Stable Discharge Plan Plan Patient Disposition: HOME (Self Care) Prescriptions/Referrals Prescriptions/Med Rec: No Action ondansetron 4 mg tablet,disintegrating 4 mg PO Q8H PRN (Reason: nausea and vomiting) Qty: 10 0RF hydroxyzine HCl 25 mg tablet 25 mg PO HS Patient Comments: TAKE ONE TABLET BY MOUTH AT BEDTIME sertraline 50 mg tablet 50 mg PO Q24H Patient Comments: TAKE ONE TABLET BY MOUTH EVERY DAY sucralfate 100 mg/mL Suspension 1 g PO QID 5 Days Qty: 200 0RF pantoprazole 40 mg tablet,delayed release (DR/EC) 40 mg PO QDAY 14 Days Qty: 14 0RF Referrals: Boyd Gifford MD [Primary Care Provider] - In 1 week Problem List Clinical Impression: Alcoholic gastritis Patient/Caregiver Discharge Instructions Education Materials: ED Gastritis (Adult) Additional Instructions: Please 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 Please take your sucralfate as prescribed, refrain from alcohol use, soda. Print Language: Dutch Stand Alone Forms: Abigail Award Info., Patient Portal Info Letter
[2024-10-18 04:58] LABS: Basophils # (Auto) 0.0 Thou/mm3 (0.0-0.2); Basophils % (Auto) 0 % (0-2.5); Eosinophils # (Auto) 0.0 Thou/mm3 (0.0-0.5); Eosinophils % (Auto) 0 % (0-10); Hematocrit 41.5 % (41.0-53.0); Hemoglobin 15.1 g/dL (13.5-16.0); Immature Granulocytes Auto 0.03 Thou/mm3 (0.00-0.00); Lymphocytes # (Auto) 1.5 Thou/mm3 (1.0-4.8); Lymphocytes % (Auto) 16 % (10-50); Mean Corpuscular HGB Conc 36.4 g/dl (31.0-37.0); Mean Corpuscular Hemoglobin 31.5 pg (25.0-35.0); Mean Corpuscular Volume 87 fL (80-100); Monocytes # (Auto) 0.7 Thou/mm3 (0.0-0.8); Monocytes % (Auto) 7 % (0-12); Neutrophils # (Auto) 7.3 Thou/mm3 (1.8-7.7); Neutrophils % (Auto) 76 % (37-80); Nucleated Red Blood Cell # 0.00 Thou/mm3 (0.00-0.00); Nucleated Red Blood Cell % 0 /100 WBC (0); Platelet Count 272 Thou/mm3 (140-440); RDW Standard Deviation 41.3 fL (35.1-43.9); Red Blood Count 4.79 Miln/mm3 (4.50-5.90); White Blood Count 9.5 Thou/mm3 (3.8-10.6)
[2024-10-18 05:20] LABS: Alanine Aminotransferase 22 U/L (10-49); Albumin, Serum 4.7 gm/dL (3.5-5.0); Albumin/Globulin Ratio 1.8 (1.2-2.2); Alcohol, Blood Medical < 3.0 mg/dL (0-10.0); Alkaline Phosphatase 68 U/L (46-116); Anion Gap 17 (7-16); Aspartate Amino Transferase 26 U/L (0-34); BUN/Creatinine Ratio 9 Ratio (12-20); Bilirubin,Total 0.5 mg/dL (0.3-1.2); Blood Urea Nitrogen 9 mg/dL (9-23); Calcium 9.9 mg/dL (8.3-10.6); Calcium (Corrected) 9.9 mg/dL (8.5-10.1); Carbon Dioxide 21.6 mMol/L (20.0-31.0); Chloride 102 mMol/L (98-107); Creatinine (Component) 1.0 mg/dL (0.6-1.3); Estimated Creatinine Clearance 104.1 mL/min (>60); Globulin 2.6 gm/dL (2.3-3.5); Glucose 164 mg/dL (74-106); Lipase 51 U/L (12-53); Osmolality,Calculated 283 (275-295); Sodium 141 mMol/L (136-145); Total Protein 7.3 gm/dL (5.7-8.2); eGFR > 60 See Note
[2024-10-18 05:33] LABS: Potassium 2.7 mMol/L (3.4-5.1)
[2024-10-18] MEDS: LIDOCAINE VISCOUS 2% 15 ML UDC PO (06:00)
[2024-10-18 06:01] VITALS: BP 144/88; PULSE 89; RESP 13; TEMP 37; O2SAT 100
[2024-10-18] MEDS: DIAZEPAM INJ 5 MG/ML VIAL 2 ML 10 MG IVP (06:01)
--- NOTE | 2024-10-18 06:33 | EDNOTE_ITS ---
Emergency Room Addendum <Pauline Hilario - Last Filed: 10/18/24 11:07> Addendum Narrative: 0600: Care assumed from SCOTT Moore, the previous shift emergency physician. Past medical, surgical, social and family history reviewed. Vitals and home medications reviewed. I will assume the care of the patient at this time, pending reassessment and final disposition. Please refer to the emergency department record for history and examination from initial visit.?The following addendum documentation note is intended to reflect any pending information, findings, or radiology results not included in the patient?s initial chart. Patient is a 23 yo with med hx notable for alc use disorder, esophagitis that is in the ED with concern for epigastric pain and nausea. Recently dc'd had a EGD showed esophagitis. Prior provider ordered labs, and medication for symptom relief. Labs with hypokalemia, repleted in the ED. No other significant elect or hematologic abnormality. On my assessment patient with recurrent emesis and epigastric pain. Ordered IV K+ repletion, CT chest, CXR, EKG, trop and additional meds for symptom relief RADIOLOGY Ordering Physician: Jennifer Ku MD Date of Service: 10/18/24 Procedure(s): CT chest w con Accession Number(s): [id number] cc: Boyd Gifford MD; Tip Hatfield MD; Jennifer Ku MD~ Examination: CT chest with intravenous contrast 2-D sagittal and coronal reconstructions Exam date and time: October 18, 2024 0908 hours INDICATIONS: Upper abdominal pain with nausea vomiting this morning, diagnosis esophageal perforation CTDI:vol (mGy) 8.32 DLP: (mGycm) 354 Technique: Multiple axial sections of the thorax have been obtained. Sections have been obtained, 3 mm slice thickness. Mediastinal and lung density settings have been obtained. Intravenous contrast administered, 60 cc Isovue-370. 2-D sagittal, coronal images obtained. Low dose protocols were performed. One or more of the following dose reduction techniques were used; automated exposure control, adjustment of the mA and/or KV according to patient size, use of iterative reconstruction technique. Findings: No thoracic aortic aneurysm dilatation No pulmonary artery filling defects. Air in the esophagus Esophageal wall does not appear thickened No pneumonia or pulmonary edema or pleural disease No inflammatory change around the esophagus No visualized liver or splenic lesion No gallstones No hydronephrosis No pancreatic mass The osseous structures are intact IMPRESSION: No mediastinal lymphadenopathy No pneumonia, pulmonary edema, pleural disease or pleural fluid. As clinically warranted, consider standard fluoroscopically guided esophagram follow-up Dictated By: Tip Hatfield MD Signed By: <Electronically signed by Tip Hatfield MD in OV>10/18/24 1002 <Jennifer Ku MD - Last Filed: 10/18/24 12:37> Addendum Narrative: 0600: Care assumed from SCOTT Moore, the previous shift emergency physician. Past medical, surgical, social and family history reviewed. Vitals and home medications reviewed. I will assume the care of the patient at this time, pending reassessment and final disposition. Please refer to the emergency department record for history and examination from initial visit.?The following addendum documentation note is intended to reflect any pending information, findings, or radiology results not included in the patient?s initial chart. Patient is a 23 yo with med hx notable for alc use disorder, esophagitis that is in the ED with concern for epigastric pain and nausea. Recently dc'd had a EGD showed esophagitis. Prior provider ordered labs, and medication for symptom relief. Labs with hypokalemia, repleted in the ED. No other significant elect or hematologic abnormality. On my assessment patient with recurrent emesis and epigastric pain. Ordered IV K+ repletion, CT chest, CXR, EKG, trop and additiona l meds for symptom relief Chest x-ray and CT chest without any acute abnormalities. Repeat metabolic panel with significantly improved potassium. On reevaluation, patient symptoms completely resolved, tolerating oral intake. 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 RADIOLOGY Ordering Physician: Jennifer Ku MD Date of Service: 10/18/24 Procedure(s): CT chest w con Accession Number(s): [id number] cc: Boyd Gifford MD; Tip Hatfield MD; Jennifer Ku MD~ Examination: CT chest with intravenous contrast 2-D sagittal and coronal reconstructions Exam date and time: October 18, 2024 0908 hours INDICATIONS: Upper abdominal pain with nausea vomiting this morning, diagnosis esophageal perforation CTDI:vol (mGy) 8.32 DLP: (mGycm) 354 Technique: Multiple axial sections of the thorax have been obtained. Sections have been obtained, 3 mm slice thickness. Mediastinal and lung density settings have been obtained. Intravenous contrast administered, 60 cc Isovue-370. 2-D sagittal, coronal images obtained. Low dose protocols were performed. One or more of the following dose reduction techniques were used; automated exposure control, adjustment of the mA and/or KV according to patient size, use of iterative reconstruction technique. Findings: No thoracic aortic aneurysm dilatation No pulmonary artery filling defects. Air in the esophagus Esophageal wall does not appear thickened No pneumonia or pulmonary edema or pleural disease No inflammatory change around the esophagus No visualized liver or splenic lesion No gallstones No hydronephrosis No pancreatic mass The osseous structures are intact IMPRESSION: No mediastinal lymphadenopathy No pneumonia, pulmonary edema, pleural disease or pleural fluid. As clinically warranted, consider standard fluoroscopically guided esophagram follow-up Dictated By: Tip Hatfiedl MD Signed By: <Electronically signed by Tip Hatfield MD in OV>10/18/24 1002 ___
[2024-10-18 06:48] LABS: Magnesium 1.9 mg/dL (1.6-2.6)
--- NOTE | 2024-10-18 08:01 | XR_ITS ---
Examination: CT chest with intravenous contrast 2-D sagittal and coronal reconstructions Exam date and time: October 18, 2024 0908 hours INDICATIONS: Upper abdominal pain with nausea vomiting this morning, diagnosis esophageal perforation CTDI:vol (mGy) 8.32 DLP: (mGycm) 354 Technique: Multiple axial sections of the thorax have been obtained. Sections have been obtained, 3 mm slice thickness. Mediastinal and lung density settings have been obtained. Intravenous contrast administered, 60 cc Isovue-370. 2-D sagittal, coronal images obtained. Low dose protocols were performed. One or more of the following dose reduction techniques were used; automated exposure control, adjustment of the mA and/or KV according to patient size, use of iterative reconstruction technique. Findings: No thoracic aortic aneurysm dilatation No pulmonary artery filling defects. Air in the esophagus Esophageal wall does not appear thickened No pneumonia or pulmonary edema or pleural disease No inflammatory change around the esophagus No visualized liver or splenic lesion No gallstones No hydronephrosis No pancreatic mass The osseous structures are intact IMPRESSION: No mediastinal lymphadenopathy No pneumonia, pulmonary edema, pleural disease or pleural fluid. As clinically warranted, consider standard fluoroscopically guided esophagram follow-up
--- NOTE | 2024-10-18 08:01 | EKG_ITS ---
[facility] Test Date: 2024-10-18 Pat Name: NEREIDA CARDOZO Department: Room: - Gender: Male Promotions Associate: : 2000 Requested By: Jennifer Pollard Order Number: [id number] Reading MD: Jennifer Pollard Measurements Intervals [place] Rate: 75 P: 67 TX: 134 QRS: 81 QRSD: 99 T: 73 QT: 438 QTc: 489 Interpretive Statements SINUS RHYTHM WITH SINUS ARRHYTHMIA NONSPECIFIC ST ELEVATION [0.05+ mV ST ELEVATION] PROLONGED QT INTERVAL Compared to ECG 10/16/2024 11:33:21 Prolonged QT interval now present Early repolarization no longer present ST (T wave) deviation still present /store/S0/[id number]/ecg/[id number].pdf
--- NOTE | 2024-10-18 08:01 | XR_ITS ---
Examination: AP chest single view Technique one AP portable upright chest single view Date and time: October 18, 2024 0812 hours INDICATIONS: Chest pain today FINDINGS: Normal heart size. Lungs are clear. The osseous structures are intact IMPRESSION: No active disease.
[2024-10-18] MEDS: MORPHINE SULF INJ 10 MG/ML VIAL 4 MG IVP (08:25)
[2024-10-18] MEDS: POTASSIUM CHL 10 mEq IVPB 10 MEQ/100 ML BAG 100 MEQ IV ×2 (08:30→09:40)
[2024-10-18] MEDS: SODIUM CHLORIDE 0.9% 250 ML 250 ML 80 ML IV (08:47)
[2024-10-18 08:54] LABS: Troponin I < 0.020 ng/mL (0.0-0.045)
[2024-10-18 08:58] VITALS: BP 147/77; PULSE 73; RESP 16; TEMP 36.6; O2SAT 97
[2024-10-18 11:02] LABS: Alanine Aminotransferase 24 U/L (10-49); Albumin, Serum 5.1 gm/dL (3.5-5.0); Albumin/Globulin Ratio 2.1 (1.2-2.2); Alkaline Phosphatase 69 U/L (46-116); Anion Gap 17 (7-16); Aspartate Amino Transferase 29 U/L (0-34); BUN/Creatinine Ratio 9 Ratio (12-20); Bilirubin,Total 0.5 mg/dL (0.3-1.2); Blood Urea Nitrogen 8 mg/dL (9-23); Calcium 10.1 mg/dL (8.3-10.6); Calcium (Corrected) 10.1 mg/dL (8.5-10.1); Carbon Dioxide 21.0 mMol/L (20.0-31.0); Chloride 102 mMol/L (98-107); Creatinine (Component) 0.9 mg/dL (0.6-1.3); Estimated Creatinine Clearance 115.6 mL/min (>60); Globulin 2.4 gm/dL (2.3-3.5); Glucose 109 mg/dL (74-106); Osmolality,Calculated 278 (275-295); Potassium 3.4 mMol/L (3.4-5.1); Sodium 140 mMol/L (136-145); Total Protein 7.5 gm/dL (5.7-8.2); Troponin I < 0.020 ng/mL (0.0-0.045); eGFR > 60 See Note
[2024-10-18 12:56] VITALS: BP 124/64; PULSE 84; RESP 16; TEMP 36.7; O2SAT 97
== END 2024-10-18 12:57 | disposition home or self-care (01) ==
PROVIDERS: Physician Assistant; Emergency Provider Emergency Medicine; PCP Family Medicine
DX: K29.20 Alcoholic gastritis without bleeding (principal); F10.90 Alcohol use, unspecified, uncomplicated; R07.9 Chest pain, unspecified; I49.8 Other specified cardiac arrhythmias; I45.81 Long QT syndrome; Y90.0 Blood alcohol level of less than 20 mg/100 ml
CPT/HCPCS: 36415; 71045; 71260; 80053; 80320; 83690; 83735; 84484; 85025; 93005; 96361; 96365; 96375; 96376; 99283; A4649; J1200; J2270; J2405; J2470; J2765; J3360; J3480; J3490; J7030; J7050; Q9967; A9270; G0480

== ENCOUNTER 2024-10-20 14:54 | Emergency (ER) | payer MEDICAID, SELFPAY ==
[2024-10-20 14:54] VITALS: BMI 20.7
[2024-10-20 15:36] VITALS: BP 155/83; PULSE 86; RESP 26; TEMP 36.8; O2SAT 100
--- NOTE | 2024-10-20 15:49 | XR_ITS ---
Examination: Abdomen sonogram, Limited Date and time of exam: October 20, 2024 1605 hours INDICATIONS: Mid abdominal pain nausea vomiting beginning 3 hours ago Technique: Real-time johnson scale transabdominal sonographic images of the upper abdomen obtained. Findings: Normal gallbladder. Normal common bile duct 0.2 cm Pancreatic head 2.1 cm Liver 15 cm smooth contour no focal liver lesions Normal hepatopedal portal venous flow Patent IVC IMPRESSION: Normal study
--- NOTE | 2024-10-20 15:49 | PD.EDRME ---
Rapid Medical Screening Exam RME Arrival date/time: 10/20/24 14:54 Chief Complaint: Abdominal Pain Vital signs: Vital Signs Temperature 98.3 F 10/20/24 15:36 Pulse Rate 86 10/20/24 15:36 Respiratory Rate 26 H 10/20/24 15:36 Blood Pressure 155/83 H 10/20/24 15:36 Pulse Oximetry (%) 100 10/20/24 15:36 Oxygen Delivery Method Room Air 10/20/24 15:36 Vital signs reviewed by provider: Yes RME Narrative: Patient is a 23-year-old male with medical history notable for erosive esophagitis, status post recent endoscopy at an emergency department with concerns for nausea vomiting and abdominal pain. Patient with recently admitted to the hospital, had an endoscopy that showed esophagitis. Was discharged to home with sucralfate. Patient has been compliant with his sucralfate and Zofran had an episode of breakthrough pain came to the emergency department a couple days ago had a CT scan that did not show any evidence of perforation, workup was reassuring and so was discharged to home. Patient states that since then has been feeling well, today had greasy food, chicken Sree, chocolate milk and then started having abdominal pain. Denies any recent alcohol or drugs. Previously drank alcohol heavily, and previously smoked marijuana. No other medical problems, no surgeries to his belly, no allergies to medications.
--- NOTE | 2024-10-20 17:27 | PC.NURSE ---
naX1 AT 1725
[2024-10-20] MEDS: ONDANSETRON ODT 4 MG TABRAP PO (17:55)
[2024-10-20 18:05] LABS: Basophils # (Auto) 0.0 Thou/mm3 (0.0-0.2); Basophils % (Auto) 0 % (0-2.5); Eosinophils # (Auto) 0.0 Thou/mm3 (0.0-0.5); Eosinophils % (Auto) 0 % (0-10); Hematocrit 43.8 % (41.0-53.0); Hemoglobin 15.8 g/dL (13.5-16.0); Immature Granulocytes Auto 0.05 Thou/mm3 (0.00-0.00); Lymphocytes # (Auto) 1.0 Thou/mm3 (1.0-4.8); Lymphocytes % (Auto) 8 % (10-50); Mean Corpuscular HGB Conc 36.1 g/dl (31.0-37.0); Mean Corpuscular Hemoglobin 31.4 pg (25.0-35.0); Mean Corpuscular Volume 87 fL (80-100); Monocytes # (Auto) 0.5 Thou/mm3 (0.0-0.8); Monocytes % (Auto) 4 % (0-12); Neutrophils # (Auto) 11.7 Thou/mm3 (1.8-7.7); Neutrophils % (Auto) 88 % (37-80); Nucleated Red Blood Cell # 0.00 Thou/mm3 (0.00-0.00); Nucleated Red Blood Cell % 0 /100 WBC (0); Platelet Count 341 Thou/mm3 (140-440); RDW Standard Deviation 42.7 fL (35.1-43.9); Red Blood Count 5.03 Miln/mm3 (4.50-5.90); White Blood Count 13.3 Thou/mm3 (3.8-10.6)
[2024-10-20 18:21] LABS: Alanine Aminotransferase 25 U/L (10-49); Albumin, Serum 5.3 gm/dL (3.5-5.0); Albumin/Globulin Ratio 1.9 (1.2-2.2); Alkaline Phosphatase 69 U/L (46-116); Anion Gap 16 (7-16); Aspartate Amino Transferase 26 U/L (0-34); BUN/Creatinine Ratio 8 Ratio (12-20); Bilirubin,Total 0.7 mg/dL (0.3-1.2); Blood Urea Nitrogen 10 mg/dL (9-23); Calcium 10.8 mg/dL (8.3-10.6); Calcium (Corrected) 10.8 mg/dL (8.5-10.1); Carbon Dioxide 22.8 mMol/L (20.0-31.0); Chloride 103 mMol/L (98-107); Creatinine (Component) 1.2 mg/dL (0.6-1.3); Estimated Creatinine Clearance 86.7 mL/min (>60); Globulin 2.8 gm/dL (2.3-3.5); Glucose 137 mg/dL (74-106); Lipase 47 U/L (12-53); Osmolality,Calculated 284 (275-295); Potassium 3.3 mMol/L (3.4-5.1); Sodium 142 mMol/L (136-145); Total Protein 8.1 gm/dL (5.7-8.2); eGFR > 60 See Note
[2024-10-20] MEDS: PROCHLORPERAZINE INJ 5 MG/ML VIAL 2 ML 10 MG IM (19:27)
[2024-10-20] MEDS: MG HYD/AL HYD/SIME (Maalox Reg) SUSP 30 ML UDC PO (19:30)
[2024-10-20] MEDS: LIDOCAINE VISCOUS 2% 15 ML UDC PO (19:30)
--- NOTE | 2024-10-20 20:58 | PC.NURSE ---
PT CALLED FROM [facility] NO ANSWER
--- NOTE | 2024-10-20 21:08 | PC.NURSE ---
PT CALLED FROM [facility] NO ANSWER
== END 2024-10-20 22:18 | disposition left against medical advice (07) ==
LOC: SERX 17:16
PROVIDERS: Emergency Medicine; Emergency Provider Emergency Medicine
DX: R10.9 Unspecified abdominal pain (principal); R11.2 Nausea with vomiting, unspecified; Z53.29 Procedure and treatment not carried out because of patient's decision for other reasons; K20.90 Esophagitis, unspecified without bleeding
CPT/HCPCS: 36415; 76705; 80053; 80307; 81001; 83690; 85025; 96372; 99283; J0780; J1200; J3490; Q0162; A9270

== ENCOUNTER 2024-12-19 03:05 | Emergency (ER) | payer MEDICAID, SELFPAY ==
[2024-12-19] VITALS (7 sets, daily range): BP systolic 106–137; BP diastolic 57–76; PULSE 80–111; RESP 16–21; TEMP 36.6–36.8; O2SAT 96–99; BMI 21.4
--- NOTE | 2024-12-19 03:42 | XR_ITS ---
Examination: CT brain head without contrast. 2-D sagittal coronal reconstructions Date and time of exam: December 19, 2024, 0635 hours INDICATIONS: Head trauma bruises on the right adventist and scalp today CTDI: vol (mGy): 50.3 DLP: (mGycm): 1022 Technique: Multiple CT axial sections of the brain have been obtained, 5 mm slice thickness. Contrast has not been administered. 2-D sagittal, coronal reconstructions have been obtained Low dose protocols were performed. One or more of the following dose reduction techniques were used; automated exposure control, adjustment of the mA and/or KV according to patient size, use of iterative reconstruction technique. Findings: No significant ventricular enlargement. Small left temporal lobe tip subarachnoid cyst Intra-axial or extra-axial hemorrhage density is not seen. No mass effect or midline shift Basal cisterns are not remarkable. Fourth ventricle is midline. Cranial vault intact. Right frontal scalp swelling Impression: Negative for acute hemorrhage, mass effect or midline shift
--- NOTE | 2024-12-19 03:42 | XR_ITS ---
Examination: CT cervical spine without contrast 2-D sagittal reconstructions 2-D coronal reconstructions 3-D reconstructions. Exam date and time: December 19, 2024, 0635 hours INDICATIONS: Bruises on the head and neck today neck pain CTDI:vol (mGy) 16.1 DLP: (mGycm) 315 Technique: Multiple 2 mm axial sections of the cervical spine have been obtained. The coronal and sagittal reconstructions have been obtained. 3-D reconstructions have been obtained. Low dose protocols were performed. One or more of the following dose reduction techniques were used; automated exposure control, adjustment of the mA and/or KV according to patient size, use of iterative reconstruction technique. Findings: Axial sections demonstrate intact base of the skull. C1 exhibit satisfactory relationship to the odontoid. No acute cervical vertebral body fracture seen. Alignment posterior spinous processes satisfactory. Impression: No acute cervical fracture.
--- NOTE | 2024-12-19 03:53 | PD.EDPSYCH ---
ED Psych RME/HPI General Chief Complaint: Psychiatric Symptoms Stated Complaint: SELAM ROSARIO Arrival date/time: 12/19/24 03:05 RME / HPI RME / HPI Narrative: See [facility] for Dr. Fall's HPI Documentation. Related Data Home Medications ?Medication ?Instructions ?Recorded ?Confirmed hydroxyzine HCl 25 mg tablet 25 mg PO HS 10/12/24 10/15/24 sertraline 50 mg tablet 50 mg PO Q24H 10/12/24 10/15/24 Previous Rx's ?Medication ?Instructions ?Recorded ondansetron 4 mg disintegrating 4 mg PO Q8H PRN nausea and 04/26/22 tablet vomiting #10 tabs Allergies Allergy/AdvReac Type Severity Reaction Status Date / Time No Known Allergies Allergy Verified 10/20/24 14:56 Review of Systems Review of Systems Systems Reviewed: All systems reviewed, normal except as documented Past Medical History Past Medical History PSYCHO/SOCIAL: Positive Recreational Drug Use and Depression Social History SUBSTANCE USE: marijuana ED Exam Narrative Physical exam: See [facility] for Dr. Fall's Physical Exam Documentation. Course Quality Measures none Orders Category Date Time Status CT cervical spine wo con Stat Exams 12/19/24 03:[address] head/brain wo con Stat Exams 12/19/24 03:42 Ordered Acetaminophen Stat Lab 12/19/24 03:42 Ordered Alcohol, Blood Medical Stat Lab 12/19/24 03:42 Ordered Bilirubin,Direct Stat Lab 12/19/24 03:42 Ordered CBC Stat Lab 12/19/24 03:42 Ordered CMP [Comprehensive Metabolic Panel] Stat Lab 12/19/24 03:42 Ordered Drug Screen,Urine Stat Lab 12/19/24 03:42 Ordered Magnesium Stat Lab 12/19/24 03:42 Ordered Salicylate Stat Lab 12/19/24 03:42 Ordered TSH [Thyroid Stimulating Hormone] Stat Lab 12/19/24 03:42 Ordered Referral Electrical Maintenance Supervisor NOW 12/19/24 04:16 Active Vital Signs Vital signs: Vital Signs Temperature 98.3 F 12/19/24 03:50 Pulse Rate 96 12/19/24 03:50 Respiratory Rate 16 12/19/24 03:50 Blood Pressure 132/76 H 12/19/24 03:50 Pulse Oximetry (%) 96 12/19/24 03:50 Oxygen Delivery Method Room Air 12/19/24 03:50 Psych MDM Narrative MDM Narrative:: This section includes all my notes and documentations, including HPI, PE, and ED course. Isai Fall MD HPI: 24-year-old male who brought here by police on 5150 hold. Boyfriend called 911 because of suicidal ideations. When police arrived, patient verbally expressed wanting to and asking to be shot. And he banged his head on the cement ground and inside the police car. No loss of consciousness. No thoughts of hurting other people. No hallucinations. No other complaints. ROS: All negative except as documented in HPI. Physical Exam: General:? Alert and oriented.? Eyes:? Conjunctivae and lids clear.? EOMI.? PERRL. ENT:? No signs of head trauma. Neck:? Supple.? No tenderness. Heart:? RRR. Lungs:? No respiratory distress.? Good air movement.? No rhonchi, wheezing, rales.? Chest:? No tenderness. Abdomen:? Soft and nontender.? Normal bowel sounds.? No distension.? No rebound or guarding.? Back:? No tenderness.? Skin:? Warm and dry.? Neuro:? Alert and oriented X 3.? Cranial Nerves II-XII grossly intact.? No peripheral motor deficits. Musculoskeletal:? All major joints and bones are not tender with no limited ROM. I reviewed EMS notes. I entered orders for blood/urine tests, cervical spine and head CT, and evaluation by our ED aged or disabled carer. At 6 AM on 12/19/2024, the care of the patient was transferred to Dr. ARRIAGA. During my watch, the patient remained stable. Isai Fall MD Patient data External records reviewed:: [facility] previous records (Reviewed prior ED records from 10/20/24. Patient was seen for Unspecified abdominal pain.) Clinical information provided by:: patient and law enforcement Social determinants that could affect healthcare access:: substance use Patient has the following chronic illnesses:: Depression, Recreational Drug Use How is presenting disease/condition affected by chronic disease/condition?: exacerbated by Evaluation data The following diagnostics were reviewed and interpreted by me:: lab results and radiology exam(s) Lab and/or radiology exams considered but not ordered:: None Interpretation Summary: Complete diagnostic tests are pending. Medications / Prescriptions Medications or Prescriptions considered but not ordered:: None Medication administrations:: None Consultations Consultation(s) initiated? (list below): No Diagnosis Psych Differential Diagnosis: acute psychosis, chronic schizophrenia, suicidal ideation, bipolar disorder, depression, drug-induced psychotic disorder and acute anxiety Most likely diagnosis given after review of the tests above:: Suicidal Ideation Admission Indicated Admission indicated?: not indicated Explain why admission is indicated or not indicated:: No psychiatric service at this facility. Admission Request Was there a request for admission?: No Disposition Plan Disposition Plan: other (specify) (Signed out to Dr. Arriaga at 6 AM.) Discharge Plan Prescriptions/Referrals Prescriptions/Med Rec: No Action ondansetron 4 mg tablet,disintegrating 4 mg PO Q8H PRN (Reason: nausea and vomiting) Qty: 10 0RF hydroxyzine HCl 25 mg tablet 25 mg PO HS Patient Comments: TAKE ONE TABLET BY MOUTH AT BEDTIME sertraline 50 mg tablet 50 mg PO Q24H Patient Comments: TAKE ONE TABLET BY MOUTH EVERY DAY Referrals: No Primary/Family,Physician [Primary Care Provider] - In 1 week Problem List Clinical Impression: Suicidal ideation Patient/Caregiver Discharge Instructions Print Language: Polish
[2024-12-19 05:44] LABS: Basophils # (Auto) 0.1 Thou/mm3 (0.0-0.2); Basophils % (Auto) 0 % (0-2.5); Eosinophils # (Auto) 0.0 Thou/mm3 (0.0-0.5); Eosinophils % (Auto) 0 % (0-10); Hematocrit 40.6 % (41.0-53.0); Hemoglobin 14.8 g/dL (13.5-16.0); Immature Granulocytes Auto 0.11 Thou/mm3 (0.00-0.00); Lymphocytes # (Auto) 1.7 Thou/mm3 (1.0-4.8); Lymphocytes % (Auto) 10 % (10-50); Mean Corpuscular HGB Conc 36.5 g/dl (31.0-37.0); Mean Corpuscular Hemoglobin 31.7 pg (25.0-35.0); Mean Corpuscular Volume 87 fL (80-100); Monocytes # (Auto) 0.7 Thou/mm3 (0.0-0.8); Monocytes % (Auto) 4 % (0-12); Neutrophils # (Auto) 15.6 Thou/mm3 (1.8-7.7); Neutrophils % (Auto) 86 % (37-80); Nucleated Red Blood Cell # 0.00 Thou/mm3 (0.00-0.00); Nucleated Red Blood Cell % 0 /100 WBC (0); Platelet Count 267 Thou/mm3 (140-440); RDW Standard Deviation 40.1 fL (35.1-43.9); Red Blood Count 4.67 Miln/mm3 (4.50-5.90); White Blood Count 18.2 Thou/mm3 (3.8-10.6)
[2024-12-19 06:02] LABS: Acetaminophen < 2.0 mcg/mL (10.0-20.0); Alanine Aminotransferase 19 U/L (10-49); Albumin, Serum 4.8 gm/dL (3.5-5.0); Albumin/Globulin Ratio 1.8 (1.2-2.2); Alcohol, Blood Medical 171.6 mg/dL (0-10.0); Alkaline Phosphatase 76 U/L (46-116); Anion Gap 19 (7-16); Aspartate Amino Transferase 30 U/L (0-34); BUN/Creatinine Ratio 12 Ratio (12-20); Bilirubin,Direct < 0.1 mg/dL (0.0-0.3); Bilirubin,Total 0.3 mg/dL (0.3-1.2); Blood Urea Nitrogen 12 mg/dL (9-23); Calcium 9.1 mg/dL (8.3-10.6); Calcium (Corrected) 9.1 mg/dL (8.5-10.1); Carbon Dioxide 18.4 mMol/L (20.0-31.0); Chloride 107 mMol/L (98-107); Creatinine (Component) 1.0 mg/dL (0.6-1.3); Estimated Creatinine Clearance 106.9 mL/min (>60); Globulin 2.7 gm/dL (2.3-3.5); Glucose 98 mg/dL (74-106); Magnesium 1.9 mg/dL (1.6-2.6); Osmolality,Calculated 286 (275-295); Potassium 3.1 mMol/L (3.4-5.1); Salicylate < 3.0 mg/dL; Sodium 144 mMol/L (136-145); Thyroid Stimulating Hormone 1.16 uIU/mL (0.55-4.78); Total Protein 7.5 gm/dL (5.7-8.2); eGFR > 60 See Note
[2024-12-19 07:01] LABS: Amphetamine/Methamp Scrn,U Negative (Negative); Barbiturate Screen,Urine Negative (Negative); Benzodiazepines Screen,Urine Negative (Negative); Benzoylecgonine Screen, Ur Negative (Negative); Fentanyl Screen,Urine Negative (Negative); Opiate Screen,Urine Negative (Negative); THC Screen,Urine Positive (Negative)
[2024-12-19] MEDS: POTASSIUM CHLORIDE 10% 20 MEQ/15 ML UDC 40 MEQ PO (09:18)
[2024-12-19] MEDS: ACETAMINOPHEN 500 MG TABLET 1000 MG PO (09:18)
[2024-12-19] MEDS: SODIUM CHLORIDE 0.9% 1000 ML 1,000 ML 999 ML IV (09:23)
--- NOTE | 2024-12-19 10:02 | PD.EDADDENDU ---
Emergency Room Addendum Addendum Narrative: 0600: Care assumed from Dr. Fall, the previous shift emergency physician. Past medical, surgical, social and family history reviewed. Vitals and home medications reviewed. I will assume the care of the patient at this time, pending imaging and medical clearance for mental health evaluation. Please refer to the emergency department record for history and examination from initial visit.?The following addendum documentation note is intended to reflect any pending information, findings, or radiology results not included in the patient?s initial chart. Head CT and cervical spine CT are both negative with no acute findings. 1025: Patient is medically cleared for mental health evaluation. 1300: farmworker fruit has met with and evaluated the patient. They have rescinded the 5150 hold. Patient has an appointment scheduled with [facility] tomorrow at 3pm. States she has spoken with patients mother who is in agreement with plan to DC home. During my watch, patient has remained stable.
--- NOTE | 2024-12-19 13:00 | PC.SS ---
SS follow up note; SS sent Referral to [facility] via fax.
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
== END 2024-12-19 13:24 | disposition home or self-care (01) ==
PROVIDERS: Emergency Provider Emergency Medicine
DX: R45.851 Suicidal ideations (principal); Z65.3 Problems related to other legal circumstances
CPT/HCPCS: 36415; 70450; 72125; 80053; 80307; 80320; 80329; 82248; 83735; 84443; 85025; 96127; 96360; 99284; J7030; A9270; G0480

== ENCOUNTER 2025-01-06 21:20 | Emergency (ER) | payer MEDICAID, SELFPAY ==
[2025-01-06 21:38] VITALS: BP 148/91; PULSE 98; RESP 20; TEMP 36.8; O2SAT 98
--- NOTE | 2025-01-06 21:48 | XR_ITS ---
Examination: CT abdomen and pelvis without contrast. Coronal 3-D reconstructions. Sagittal 2-D reconstructions. Date and time of exam: January 06, 2025, 10:00 p.m., comparison October 15, 2024 INDICATIONS: Abdominal pain nausea vomiting today CTDI: vol (mGy): 9.21 DLP: (mGycm): 508 Technique: Axial images of the abdomen have been obtained, 3 mm slice thickness Intravenous contrast material has not been administered. Low dose protocols were performed. One or more of the following dose reduction techniques were used; automated exposure control, adjustment of the mA and/or KV according to patient size, use of iterative reconstruction technique. Findings: Diffuse severe fatty infiltration throughout the liver no focal liver lesions Spleen is not enlarged No pancreatic or adrenal mass No renal or ureteral calculi, no hydronephrosis Aorta normal size Normal appendix No bowel obstruction No definite colitis on this limited noncontrast study Urinary bladder intact No prostatomegaly IMPRESSION: Limited noncontrast study Diffuse severe fatty infiltration throughout the liver No renal or ureteral calculi, no hydronephrosis Normal appendix
[2025-01-06] MEDS: SODIUM CHLORIDE 0.9% 1000 ML 1,000 ML 999 ML IV (22:35)
[2025-01-06] MEDS: ONDANSETRON INJ 2 MG/ML INJ 2 ML 4 MG IVP (22:35)
[2025-01-06 22:39] LABS: Basophils # (Auto) 0.1 Thou/mm3 (0.0-0.2); Basophils % (Auto) 1 % (0-2.5); Eosinophils # (Auto) 0.0 Thou/mm3 (0.0-0.5); Eosinophils % (Auto) 0 % (0-10); Hematocrit 41.4 % (41.0-53.0); Hemoglobin 14.9 g/dL (13.5-16.0); Immature Granulocytes Auto 0.29 Thou/mm3 (0.00-0.00); Lymphocytes # (Auto) 1.4 Thou/mm3 (1.0-4.8); Lymphocytes % (Auto) 16 % (10-50); Mean Corpuscular HGB Conc 36.0 g/dl (31.0-37.0); Mean Corpuscular Hemoglobin 31.6 pg (25.0-35.0); Mean Corpuscular Volume 88 fL (80-100); Monocytes # (Auto) 0.4 Thou/mm3 (0.0-0.8); Monocytes % (Auto) 4 % (0-12); Neutrophils # (Auto) 6.4 Thou/mm3 (1.8-7.7); Neutrophils % (Auto) 75 % (37-80); Nucleated Red Blood Cell # 0.00 Thou/mm3 (0.00-0.00); Nucleated Red Blood Cell % 0 /100 WBC (0); Platelet Count 201 Thou/mm3 (140-440); RDW Standard Deviation 43.7 fL (35.1-43.9); Red Blood Count 4.71 Miln/mm3 (4.50-5.90); White Blood Count 8.5 Thou/mm3 (3.8-10.6)
[2025-01-06 22:58] LABS: Alanine Aminotransferase 169 U/L (10-49); Albumin, Serum 5.0 gm/dL (3.5-5.0); Albumin/Globulin Ratio 1.6 (1.2-2.2); Alcohol, Blood Medical 261.1 mg/dL (0-10.0); Alkaline Phosphatase 129 U/L (46-116); Anion Gap 21 (7-16); Aspartate Amino Transferase 249 U/L (0-34); BUN/Creatinine Ratio 8 Ratio (12-20); Bilirubin,Total 0.5 mg/dL (0.3-1.2); Blood Urea Nitrogen 6 mg/dL (9-23); Calcium 9.2 mg/dL (8.3-10.6); Calcium (Corrected) 9.2 mg/dL (8.5-10.1); Carbon Dioxide 18.6 mMol/L (20.0-31.0); Chloride 104 mMol/L (98-107); Creatinine (Component) 0.8 mg/dL (0.6-1.3); Estimated Creatinine Clearance 129.0 mL/min (>60); Globulin 3.1 gm/dL (2.3-3.5); Glucose 131 mg/dL (74-106); Lipase 37 U/L (12-53); Osmolality,Calculated 286 (275-295); Potassium 3.2 mMol/L (3.4-5.1); Sodium 144 mMol/L (136-145); Total Protein 8.1 gm/dL (5.7-8.2); eGFR > 60 See Note
--- NOTE | 2025-01-06 23:25 | PRELIM_ITS ---
CT scan of the abdomen and pelvis without intravenous contrast (axial sections with sagittal and coronal reformats) January 06, 2025 at 2209 hours Clinical History: Abdominal pain. Comparison: No prior study is available for comparison. Findings: The lung bases are clear. Fatty infiltration of the liver is noted. The gallbladder is distended. The pancreas, spleen, kidneys and adrenals are unremarkable on this noncontrast study. No evidence of bowel obstruction. There is mild thickening versus underdistention of the entire colon. The appendix is within normal limits (coronal images 50/124). There is no mesenteric or retroperitoneal adenopathy. The urinary bladder is unremarkable. There is no free fluid or free air. The osseous structures are unremarkable. Impression: No evidence of bowel obstruction, free air or fluid collection. Mild thickening versus underdistention of the entire colon. In the appropriate clinical setting, the possibility of colitis cannot be excluded. Report Electronically Signed By: Frederick Kumar 01/06/2025 11:24:20 PM [EST]
[2025-01-06 23:39] VITALS: BP 138/87; PULSE 72; RESP 18; TEMP 36.8; O2SAT 99
[2025-01-07 00:30] LABS: LDH (Lactate Dehydrogenase) 453 U/L (120-246)
[2025-01-07 01:02] LABS: Collection Type, Urine Clean Catch; Squamous Epithelial Cell,Urine 0 /hpf (0-5)
[2025-01-07 01:07] LABS: Bilirubin,Urine Negative (Negative); Blood,Urine Negative (Negative); Clarity,Urine Clear (Clear/Hazy); Color,Urine Lt-Yellow (Lt Yel-Yel); Glucose, Urine Negative (Negative); Ketones,Urine 2+ (Negative); Leukocyte Esterase,Urine Negative (Negative); Nitrite,Urine Negative (Negative); PH,Urine 6.5 (5.0-7.0); Protein,Urine Negative (Neg - Trace); RBC,Urine 1 /hpf (0-3); Specific Gravity,Urine 1.014 (1.001-1.035); Urobilinogen,Urine Negative mg/dL (0.0-1.0); WBC,Urine 1 /hpf (0-5)
--- NOTE | 2025-01-07 01:18 | EDNOTE_ITS ---
ED Abdominal Pain RME/HPI General Chief Complaint: Nausea/Vomiting/Diarrhea Stated complaint: NAUSEA, VOMITTING Time seen by provider: 01/06/25 21:48 Arrival date/time: 01/06/25 21:20 This is a case of 24-year-old male with past medical history of gastritis EtOH erosive esophagitis alcoholic gastritis status post EGD last September and was treated for alcoholic gastritis patient was given sucralfate and Protonix at that time patient is fine until today patient was drinking all day and started to have abdominal pain more on the epigastric area associated with nausea vomiting patient also took marijuana after drinking alcohol patient denies any fever chills patient denies any suicidal or homicidal ideation denies hallucination persistence of the symptoms this patient decided to sought consult here in the emergency room Limitations: other Related Data Home Medications ?Medication ?Instructions ?Recorded ?Confirmed hydroxyzine HCl 25 mg tablet 25 mg PO HS 10/12/2409/29 sertraline 50 mg tablet 50 mg PO Q24H 10/12/2410/15 Previous Rx's ?Medication ?Instructions ?Recorded ondansetron 4 mg disintegrating 4 mg PO Q8H PRN nausea and 04/26/22 tablet vomiting #10 tabs famotidine 20 mg tablet (Pepcid) 20 mg PO BID #60 tabs 01/07/25 omeprazole 20 mg capsule,delayed 20 mg PO QDAY #30 cap s 01/07/25 release ondansetron 4 mg disintegrating 4 mg PO Q8H #20 tabs 1 03/09/24 tablet sucralfate 1 gram tablet 1 g PO Q6H 4 weeks #112 tabs 01/07/25 Allergies Allergy/AdvReac Type Severity Reaction Status Date / Time No Known Allergies Allergy Verified 10/20/24 14:56 Review of Systems Review of Systems Systems Reviewed: All systems reviewed, normal except as documented Constitutional Constitutional: Reports system reviewed and no additional complaints, except as documented and Reports as per HPI Cardiovascular Cardiovascular: Reports system reviewed and no additional complaints, except as documented and Reports as per HPI Respiratory Respiratory: Reports system reviewed and no additional complaints, except as documented and Reports as per HPI Gastrointestinal Gastrointestinal: Reports system reviewed and no additional complaints, except as documented and Reports as per HPI Musculoskeletal Musculoskeletal: Reports system reviewed and no additional complaints, except as documented and Reports as per HPI Integumentary/Breasts Skin/Breast: Reports system reviewed and no additional complaints, except as documented and Reports as per HPI Neurologic Neurologic: Reports system reviewed and no additional complaints, except as documented and Reports as per HPI Psychiatric Psychiatric: Reports system reviewed and no additional complaints, except as documented and Reports as per HPI Past Medical History Past Medical History NEUROLOGIC: Negative Seizures CARDIAC: Negative Cardiac Disorders or Congestive Heart Failure RESPIRATORY: Negative Chronic Obstructive Pulmonary Disease (COPD) or Asthma GENITOURINARY: Negative Renal Disease ENDOCRINE: Negative Diabetes Mellitus Type 1 or Diabetes Mellitus Type 2 HEMATOLOGIC: Negative Sickle Cell Disease PSYCHO/SOCIAL: Positive Recreational Drug Use and Depression OTHER HISTORY: Negative Blood Transfusions, Blood Transfusion Reaction or Anesthesia Reactions Social History SMOKING STATUS: Current some day smoker SUBSTANCE USE: marijuana ED Exam General Limitations: Present other General appearance: Present alert, in no apparent distress and other (Patient is awake alert oriented not in distress nontoxic looking well-hydrated well- nourished) Head Head exam: Present atraumatic, normocephalic and normal inspection Eye Eye exam: Present normal appearance, PERRL and EOMI ENT ENT exam: Present normal exam, normal oropharynx and mucous membranes moist Neck Neck exam: Present normal inspection, full ROM and trachea midline; Absent tenderness, meningismus, lymphadenopathy or thyromegaly Chest Chest inspection: Present normal inspection and symmetric chest wall rise; Absent tenderness Respiratory Respiratory exam: Present normal lung sounds bilaterally; Absent respiratory distress, wheezes, stridor, accessory muscle use or prolonged expiratory phase Cardiovascular Cardiovascular exam: Present regular rate, normal rhythm and normal heart sounds; Absent bradycardia, tachycardia, irregular rhythm, systolic murmur or diastolic murmur Abdominal Exam Abdominal exam: Present soft, tenderness (Mild tenderness in the epigastric area) and normal bowel sounds; Absent distention, guarding, rebound, rigidity, hyperactive bowel sounds, hypoactive bowel sounds, organomegaly, obturator sign, Chao's sign, Rovsing's sign, tenderness at McBurney's Point or hernia Extremities Exam Extremities exam: Present normal inspection and full ROM Back Exam Back exam: Present normal inspection and full ROM Neurological Exam Neurological exam: Present alert, oriented X3, CN II-XII intact, normal gait and reflexes normal; Absent motor sensory deficit Psychiatric Psychiatric exam: Present normal affect, normal mood and anxious; Absent depressed, agitated, flat affect, manic, homicidal ideation or suicidal ideation Skin Skin exam: Present warm, dry, intact, normal color and other (Excellent skin turgor) Course Quality Measures none Orders Category Date Time Status Insert IV NOW Care 01/06/25 22:[address] abdomen pelvis wo con Stat Exams 01/06/25 21:48 Taken Alcohol, Blood Medical Stat Lab 01/06/25 22:00 Completed CBC Stat Lab 01/06/25 22:00 Completed Comprehensive Metabolic Panel Stat Lab 01/06/25 22:00 Completed Drug Screen,Urine Stat Lab 01/06/25 00:45 Completed LDH (Lactate Dehydrogenase) Stat Lab 01/06/25 22:00 Completed Lipase Stat Lab 01/06/25 22:00 Completed Urinalysis Stat Lab 01/06/25 00:45 Completed Morphine* Inj Med 01/07/25 01:14 Discontinued 4 mg IVP X1 ONE Ondansetron Inj [Zofran Inj] Med 01/06/25 22:26 Discontinued 4 mg IVP X1 ONE Ondansetron Inj [Zofran Inj] Med 01/07/25 01:13 Discontinued 4 mg IVP X1 ONE Pantoprazole Inj [Protonix Inj] Med 01/07/25 01:13 Discontinued 40 mg IVP X1 ONE Potassium Chloride [K-Dur] Med 01/06/25 23:53 Discontinued 40 meq PO X1 ONE Sodium Chloride 0.9% 1000 ml [Ns] 1,000 ml Med 01/06/25 22:26 Discontinued IV 999 mls/hr Sodium Chloride 0.9% 1000 ml [Ns] 1,000 ml Med 01/07/25 01:14 Active IV 999 mls/hr Vital Signs Vital signs: Vital Signs Temperature 98.2 F 01/06/25 21:38 Pulse Rate 98 01/06/25 21:38 Respiratory Rate 20 01/06/25 21:38 Blood Pressure 148/91 H 01/06/25 21:38 Pulse Oximetry (%) 98 01/06/25 21:38 Oxygen Delivery Method Room Air 01/06/25 21:38 Oxygen saturation is 98% on room air Abdominal Pain MDM MDM Narrative MDM Narrative:: This is a case of 24-year-old male with past medical history of gastritis EtOH erosive esophagitis alcoholic gastritis status post EGD last September and was treated for alcoholic gastritis patient was given sucralfate and Protonix at that time patient is fine until today patient was drinking all day and started to have abdominal pain more on the epigastric area associated with nausea vomiting patient also took marijuana after drinking alcohol patient denies any fever chills patient denies any suicidal or homicidal ideation denies hallucination persistence of the symptoms this patient decided to sought consult here in the emergency room patient is awake alert oriented not in distress nontoxic looking well-hydrated well-nourished no signs and symptoms of sepsis nor dehydration patient CIWA score is 2 patient have mild nausea vomiting mild anxiety no tremors no sweats patient have normal activity but no agitation no itching no auditory nor visual hallucination no headache patient is awake alert oriented x 4 patient abdominal exam is benign nonsurgical no guarding no rebound no rigidity with mild tenderness on the epigastric area negative psoas negative straight or negative Rovsing's negative McBurney's negative Chao sign negative CVA tenderness patient mental exam mild anxiety but no agitation no suicidal no homicidal ideation no hallucination patient vital signs is afebrile nontachycardic nontachypneic and nonhypoxic BP stable lungs sound is clear no crackles no rales no retraction no stridor heart normal rate regular rhythm no murmur neurological exam is normal blood test showed no leukocytosis no anemia platelet is normal patient kidney function is normal patient potassium is 3.2 thus patient was given K-Dur 40 mEq p.o. x 1 here in the emergency room patient liver function is elevated AST 249 ALT 169 alk phos is 129 patient lactic dehydration is is 453 patient alcohol level is 261 patient is positive for marijuana urinalysis is normal CT scan showed no evidence of bowel obstruction free fluid or fluid collection with mild thickening versus underdistention of the entire colon possible colitis based on my physical examination and history patient symptoms suggestive of alcoholic gastritis thus patient was given a 2 bolus of normal saline due to elevated alcoholic dehydrogenase morphine for pain Zofran for vomiting and Protonix for gastritis after 1 hour patient was reassessed patient pain was resolved no recurrence of vomiting patient is not anxious patient is calm abdominal exam is benign no guarding no rebound no rigidity no tenderness at this point patient will be discharged home in stable condition I discussed with Dr. Cao patient condition history and physical examination relayed the result of blood test and lactic dehydrogenase since the patient condition improved and abdominal pain is resolved patient will be discharged with stable condition patient will follow-up with rehab director occupational therapist for alcoholic gastritis he also advised to ask for help for EtOH for any wo rsening symptoms or any emergent concern return precaution in the ER was advised Patient was discharged with comfortable condition walking with stable gait. Patient verbalized no further complains explained diagnosis and answered patient question. Patient is comfortable with the proposed management plan including the need to follow up with his/her primary care physician and any specialist if applicable Discussed patient for any urgent condition or worsening sx, He/She needed to go to emergency room immediately or call 911. Patient acknowledge the responsibility to follow up as instructed and to monitor her/his symptoms. For any persistence of the symptoms for more than 3-5 days return precaution advised. Discussed the result of the test and was given printed discharge instruction Patient data External records reviewed:: [facility] previous records Clinical information provided by:: patient Social determinants that could affect healthcare access:: none Patient has the following chronic illnesses:: None How is presenting disease/condition affected by chronic disease/condition?: no chronic disease Evaluation data The following diagnostics were reviewed and interpreted by me:: lab results and radiology exam(s) Lab and/or radiology exams considered but not ordered:: Reviewed Interpretation Summary: Reviewed Medications / Prescriptions Medications or Prescriptions considered but not ordered:: Given Medication administrations:: Medication Administration History Sodium Chloride (Ns) 1,000 mls @ 999 mls/hr IV .Q1H1M ONE Stop: 01/07/25 02:14 Discontinued Medications Sodium Chloride (Ns) 1,000 mls @ 999 mls/hr IV .Q1H1M ONE Stop: 01/06/25 23:26 Last Infusion: 01/06/25 23:32 Dose: Infused Documented By: Admin: 01/06/25 22:35 Dose: 999 mls/hr Documented By: BD Morphine Sulfate (Morphine Sulf Inj 4 Mg/Ml Vial) 4 mg IVP X1 ONE Stop: 01/07/25 01:15 Ondansetron HCl (Ondansetron Inj 2 Mg/Ml Inj 2 Ml) 4 mg IVP X1 ONE; Protocol Stop: 01/06/25 22:27 Last Admin: 01/06/25 22:35 Dose: 4 mg Documented By: BD Ondansetron HCl (Ondansetron Inj 2 Mg/Ml Inj 2 Ml) 4 mg IVP X1 ONE; Protocol Stop: 01/07/25 01:14 Pantoprazole Sodium (Pantoprazole Inj 40 Mg Vial) 40 mg IVP X1 ONE Stop: 01/07/25 01:14 Potassium Chloride (Potassium Chloride 20 Meq Tabcr) 40 meq PO X1 ONE Stop: 01/06/25 23:54 Given Consultations Consultation(s) initiated? (list below): Yes Consultation #1 (Physician, Specialty, Details): Dr. Sofia Cao discussed patient condition history physical examination relayed the abnormal liver enzyme and lactic dehydrogenase still instructed to discharge the patient and follow-up with GI specialist for further evaluation and treatment Diagnosis Differential diagnosis abdominal pain: abdominal pain, acute appendicitis, calculus of kidney, diverticulitis, endometriosis, gastroenteritis, pancreatitis, small bowel obstruction and other (Gastritis colitis) Most likely diagnosis given after review of the tests above:: Alcoholic gastritis Admission Indicated Admission indicated?: not indicated Explain why admission is indicated or not indicated:: Not indicated Admission Request Was there a request for admission?: No Disposition Plan Disposition Plan: Discharge Discharge Attestation Discharge Attestation: The patient and all family members were given an opportunity to ask questions and understood the discharge instructions. Discharge instructions specifically effects, indications for sooner follow up or return to the emergency department, and the expected course of current diagnosis. Patient condition: Stable Discharge Plan Plan Patient Disposition: HOME (Self Care) Patient condition on transfer: Stable Prescriptions/Referrals Prescriptions/Med Rec: New omeprazole 20 mg capsule,delayed release(DR/EC) 20 mg PO QDAY Qty: 30 0RF sucralfate 1 gram tablet 1 g PO Q6H 28 Days Qty: 112 0RF famotidine [Pepcid] 20 mg tablet 20 mg PO BID Qty: 60 0RF ondansetron 4 mg tablet,disintegrating 4 mg PO Q8H Qty: 20 0RF No Action ondansetron 4 mg tablet,disintegrating 4 mg PO Q8H PRN (Reason: nausea and vomiting) Qty: 10 0RF hydroxyzine HCl 25 mg tablet 25 mg PO HS Patient Comments: TAKE ONE TABLET BY MOUTH AT BEDTIME sertraline 50 mg tablet 50 mg PO Q24H Patient Comments: TAKE ONE TABLET BY MOUTH EVERY DAY Referrals: No Primary/Family,Physician [Primary Care Provider] - In 1 week Problem List Clinical Impression: Alcoholic gastritis, ETOH abuse, Hypokalemia, Marijuana use, Elevated liver enzymes Patient/Caregiver Discharge Instructions Education Materials: Substance Abuse and Traumatic ..., ED Gastritis (Adult), ED Hypokalemia, ED Alcohol Abuse Additional Instructions: Follow-up with your primary care physician in 2 days for reevaluation and to be referred to to rehab director occupational therapist or go back to Dr. Malcolm for further evaluation and treatment of your alcoholic gastritis and elevated liver enzyme to monitor the symptoms follow-up with your primary care physician to monitor and to repeat the level of potassium as an outpatient follow-up with your primary care physician asked for help for alcohol abuse and marijuana use worsening recurrence persistence of the symptoms or any emergent concern call 911 or go to the nearest emergency room take your medication as directed avoid skipping of meals avoid fatty fried high cholesterol food avoid spicy food avoid alcohol soda or coffee increase water intake keep hydrated Pedialyte Gatorade for every bouts of vomiting and for hydration Print Language: Brazilian Stand Alone Forms: Abigail Award Info., Patient Portal Info Letter PA/FIELD TRAINING AGENT Supervising Physician PA/FIELD TRAINING AGENT Supervising Physician: Dr. Sofia Cao
[2025-01-07 01:30] LABS: Amphetamine/Methamp Scrn,U Negative (Negative); Barbiturate Screen,Urine Negative (Negative); Benzodiazepines Screen,Urine Negative (Negative); Benzoylecgonine Screen, Ur Negative (Negative); Fentanyl Screen,Urine Negative (Negative); Opiate Screen,Urine Negative (Negative); THC Screen,Urine Positive (Negative)
[2025-01-07] MEDS: ONDANSETRON INJ 2 MG/ML INJ 2 ML 4 MG IVP (01:51)
[2025-01-07] MEDS: MORPHINE SULF INJ 4 MG/ML VIAL IVP (01:52)
[2025-01-07] MEDS: SODIUM CHLORIDE 0.9% 1000 ML 1,000 ML 999 ML IV (01:52)
[2025-01-07 01:55] VITALS: BP 152/89; PULSE 77; RESP 18; TEMP 36.9; O2SAT 98
[2025-01-07 05:20] VITALS: BP 138/91; PULSE 74; RESP 18; TEMP 37.2; O2SAT 100
== END 2025-01-07 05:20 | disposition home or self-care (01) ==
PROVIDERS: Nurse Practitioner Family; Emergency Provider Emergency Medicine
DX: K29.20 Alcoholic gastritis without bleeding (principal); E87.6 Hypokalemia; F10.10 Alcohol abuse, uncomplicated; F12.90 Cannabis use, unspecified, uncomplicated
CPT/HCPCS: 36415; 74176; 80053; 80307; 80320; 81001; 83615; 83690; 85025; 96361; 96374; 96375; 96376; 99284; J2270; J2405; J2470; J7030; A9270; G0480

== ENCOUNTER 2025-01-07 07:48 | Emergency (ER) | payer MEDICAID, SELFPAY ==
[2025-01-07 08:06] VITALS: BP 155/86; PULSE 94; RESP 18; TEMP 36.8; O2SAT 99; BMI 21.4
--- NOTE | 2025-01-07 08:42 | PD.EDRME ---
Rapid Medical Screening Exam E Arrival date/time: 01/07/25 07:48 This is a 24-year-old male that comes into the emergency room with complaints of abdominal pain nausea, vomiting. Patient states he drink yesterday. Patient was here last night and left early this morning. Had a full workup done CT scan abdomen pelvis. Patient states that now he is throwing up again and is having abdominal pain. I have greeted and performed a focused initial assessment of this patient. Initial appropriate labs ordered at this time. A comprehensive ED assessment and evaluation of the patient and analysis of all test and completion of medical decision making process will be conducted by additional ED provider. Chief Complaint: Abdominal Pain Time Seen by Provider: 01/07/25 08:21 Vital signs: Vital Signs Temperature 98.2 F 01/07/25 08:06 Pulse Rate 94 01/07/25 08:06 Respiratory Rate 18 01/07/25 08:06 Blood Pressure 155/86 H 01/07/25 08:06 Pulse Oximetry (%) 99 01/07/25 08:06 Oxygen Delivery Method Room Air 01/07/25 08:06 Exam: Alert and oriented, diffuse abdominal pain Clinical Impression: Abdominal pain
[2025-01-07] MEDS: ONDANSETRON ODT 4 MG TABRAP PO (08:49)
[2025-01-07 09:21] LABS: Basophils # (Auto) 0.0 Thou/mm3 (0.0-0.2); Basophils % (Auto) 0 % (0-2.5); Eosinophils # (Auto) 0.0 Thou/mm3 (0.0-0.5); Eosinophils % (Auto) 0 % (0-10); Hematocrit 40.7 % (41.0-53.0); Hemoglobin 14.9 g/dL (13.5-16.0); Immature Granulocytes Auto 0.08 Thou/mm3 (0.00-0.00); Lymphocytes # (Auto) 1.1 Thou/mm3 (1.0-4.8); Lymphocytes % (Auto) 11 % (10-50); Mean Corpuscular HGB Conc 36.6 g/dl (31.0-37.0); Mean Corpuscular Hemoglobin 32.2 pg (25.0-35.0); Mean Corpuscular Volume 88 fL (80-100); Monocytes # (Auto) 0.4 Thou/mm3 (0.0-0.8); Monocytes % (Auto) 4 % (0-12); Neutrophils # (Auto) 8.9 Thou/mm3 (1.8-7.7); Neutrophils % (Auto) 85 % (37-80); Nucleated Red Blood Cell # 0.00 Thou/mm3 (0.00-0.00); Nucleated Red Blood Cell % 0 /100 WBC (0); Platelet Count 219 Thou/mm3 (140-440); RDW Standard Deviation 44.9 fL (35.1-43.9); Red Blood Count 4.63 Miln/mm3 (4.50-5.90); White Blood Count 10.4 Thou/mm3 (3.8-10.6)
[2025-01-07 09:43] LABS: Alanine Aminotransferase 156 U/L (10-49); Albumin, Serum 5.3 gm/dL (3.5-5.0); Albumin/Globulin Ratio 1.9 (1.2-2.2); Alkaline Phosphatase 122 U/L (46-116); Anion Gap 24 (7-16); Aspartate Amino Transferase 169 U/L (0-34); BUN/Creatinine Ratio 7 Ratio (12-20); Bilirubin,Total 0.8 mg/dL (0.3-1.2); Blood Urea Nitrogen 6 mg/dL (9-23); Calcium 9.5 mg/dL (8.3-10.6); Calcium (Corrected) 9.5 mg/dL (8.5-10.1); Chloride 103 mMol/L (98-107); Creatinine (Component) 0.9 mg/dL (0.6-1.3); Estimated Creatinine Clearance 118.8 mL/min (>60); Globulin 2.8 gm/dL (2.3-3.5); Glucose 116 mg/dL (74-106); Lipase 36 U/L (12-53); Osmolality,Calculated 279 (275-295); Potassium 3.7 mMol/L (3.4-5.1); Sodium 141 mMol/L (136-145); Total Protein 8.1 gm/dL (5.7-8.2); eGFR > 60 See Note
[2025-01-07 09:50] LABS: Carbon Dioxide 14.4 mMol/L (20.0-31.0)
--- NOTE | 2025-01-07 11:08 | PD.EDABDPN ---
ED Abdominal Pain RME/HPI General Chief Complaint: Abdominal Pain Stated complaint: ABD PAIN, N/V Time seen by provider: 01/07/25 08:21 Arrival date/time: 01/07/25 07:48 RME / HPI RME / HPI narrative: 01/07/25 07:48 This is a 24-year-old male that comes into the emergency room with complaints of abdominal pain nausea, vomiting. Patient states he drink yesterday. Patient was here last night and left early this morning. Had a full workup done CT scan abdomen pelvis. Patient states that now he is throwing up again and is having abdominal pain. I have greeted and performed a focused initial assessment of this patient. Initial appropriate labs ordered at this time. A comprehensive ED assessment and evaluation of the patient and analysis of all test and completion of medical decision making process will be conducted by additional ED provider. DR. JACOBS MAIN ED EVALUATION: 24-year-old male presents to the Emergency Department with abdominal pain, nausea, and vomiting. The patient reports that he drank alcohol yesterday and was seen in the ED last night, where he underwent a full workup including a CT scan of the abdomen and pelvis. He was discharged early this morning, but has since developed recurrent vomiting and worsening abdominal pain. He denies fevers, chills, diarrhea, chest pain, urinary symptoms, or other symptoms reported. Patient uses marijuana and drinks alcohol. Related Data Home Medications ?Medication ?Instructions ?Recorded ?Confirmed hydroxyzine HCl 25 mg tablet 25 mg PO HS 10/12/24 10/15/24 sertraline 50 mg tablet 50 mg PO Q24H 10/12/24 10/15/24 Previous Rx's ?Medication ?Instructions ?Recorded ondansetron 4 mg disintegrating 4 mg PO Q8H PRN nausea and 04/26/22 tablet vomiting #10 tabs famotidine 20 mg tablet (Pepcid) 20 mg PO BID #60 tabs 01/07/25 omeprazole 20 mg capsule,delayed 20 mg PO QDAY #30 caps 01/07/25 release ondansetron 4 mg disintegrating 4 mg PO Q8H #20 tabs 01/07/25 tablet sucralfate 1 gram tablet 1 g PO Q6H 4 weeks #112 tabs 01/07/25 Allergies Allergy/AdvReac Type Severity Reaction Status Date / Time No Known Allergies Allergy Verified 10/20/24 14:56 Review of Systems Review of Systems Systems Reviewed: All systems reviewed, normal except as documented Past Medical History Past Medical History PSYCHO/SOCIAL: Positive Recreational Drug Use and Depression Social History SMOKING STATUS: Never smoker SUBSTANCE USE: marijuana ALCOHOL: Current ED Exam Narrative Physical exam: GENERAL APPEARANCE: alert and oriented x 4, well-developed, well-nourished, grimacing but in no acute distress VITALS: All vitals were reviewed and the pulse ox is 99% on room air, which is normal according to my interpretation. HEENT: Normocephalic, atraumatic; pupils equal, round, reactive to light; EOMI; mucous membranes pink, moist; oropharynx clear NECK: Supple LUNGS: CTABL; no wheezes, no rales, no rhonchi HEART: Regular rate, regular rhythm; normal S1, S2; no murmurs ABDOMEN: non distended; normal BS; soft, no tenderness, no guarding, no rebound; no masses, no organomegaly, no hernia BACK: no CVA tenderness EXTREMITIES: atraumatic; no edema NEUROLOGIC: awake; alert and oriented x4; cranial nerves II-XII grossly intact; no focal sensory or motor deficits PSYCHIATRIC: appropriate mood and affect SKIN: warm, dry, normal color; no rashes Course Quality Measures none Orders Category Date Time Status Insert IV NOW Care 01/07/25 13:16 Completed Alcohol, Blood Medical Stat Lab 01/07/25 08:47 Completed BMP [Basic Metabolic Panel] Stat Lab 01/07/25 14:50 Completed CBC Stat Lab 01/07/25 08:47 Completed Comprehensive Metabolic Panel Stat Lab 01/07/25 08:47 Completed Lactate (Lactic Acid) Stat Lab 01/07/25 12:00 Completed Lipase Stat Lab 01/07/25 08:47 Completed Urinalysis, C/S if Indicated Stat Lab 01/07/25 11:08 Completed Haloperidol Lactate [Haldol Inj] Med 01/07/25 14:10 Discontinued 5 mg IM X1 ONE LORazepam [Ativan Inj] Med 01/07/25 11:18 Discontinued 1 mg IVP X1 ONE Metoclopramide Inj [Reglan Inj] Med 01/07/25 12:58 Discontinued 10 mg IVP X1 ONE Morphine* Inj Med 01/07/25 12:55 Discontinued 4 mg IVP X1 ONE Ondansetron Inj [Zofran Inj] Med 01/07/25 10:58 Discontinued 4 mg IVP X1 ONE Ondansetron Inj [Zofran Inj] Med 01/07/25 12:55 Discontinued 4 mg IVP X1 ONE Ondansetron Odt [Zofran Odt] Med 01/07/25 08:41 Discontinued 4 mg PO X1 ONE Sodium Chloride 0.9% 1000 ml [Ns] 1,000 ml Med 01/07/25 10:58 Discontinued IV 999 mls/hr Sodium Chloride 0.9% 1000 ml [Ns] 1,000 ml Med 01/07/25 10:58 Discontinued IV 999 mls/hr Reevaluation(s) Reevaluation #1: Patient feeling better and would like to go home. Time: 15:38 Vital Signs Vital signs: Vital Signs Temperature 98.2 F 01/07/25 08:06 Pulse Rate 94 01/07/25 08:06 Respiratory Rate 18 01/07/25 08:06 Blood Pressure 155/86 H 01/07/25 08:06 Pulse Oximetry (%) 99 01/07/25 08:06 Oxygen Delivery Method Room Air 01/07/25 08:06 Abdominal Pain MDM MDM Narrative MDM Narrative:: ILaura am scribing for and in the presence of Dr. Jacobs. Patient data External records reviewed:: [facility] previous records Clinical information provided by:: patient Social determinants that could affect healthcare access:: substance use (marijuana and alcohol use) Patient has the following chronic illnesses:: No known PMHx, surgeries, daily medications, or known allergies. How is presenting disease/condition affected by chronic disease/condition?: no chronic disease Evaluation data The following diagnostics were reviewed and interpreted by me:: lab results Lab and/or radiology exams considered but not ordered:: none Interpretation Summary: No acute findings. Medications / Prescriptions Medications or Prescriptions considered but not ordered:: none Medication administrations:: Medication Administration History Discontinued Medications Haloperidol Lactate (Haloperidol Lact Inj 5 Mg/Ml Vial) 5 mg IM X1 ONE Stop: 01/07/25 14:11 Last Admin: 01/07/25 14:27 Dose: 5 mg Documented By: BD Sodium Chloride (Ns) 1,000 mls @ 999 mls/hr IV .Q1H1M ONE Stop: 01/07/25 11:58 Last Infusion: 01/07/25 13:14 Dose: Infused Documented By: Admin: 01/07/25 11:16 Dose: 999 mls/hr Documented By: VG Sodium Chloride (Ns) 1,000 mls @ 999 mls/hr IV .Q1H1M ONE Stop: 01/07/25 11:58 Last Infusion: 01/07/25 13:14 Dose: Infused Documented By: Admin: 01/07/25 11:16 Dose: 999 mls/hr Documented By: VG Lorazepam (Lorazepam 2 Mg/Ml Vial) 1 mg IVP X1 ONE Stop: 01/07/25 11:19 Last Admin: 01/07/25 11:28 Dose: 1 mg Documented By: DB Metoclopramide HCl (Metoclopramide Inj 5 Mg/Ml Vial 2 Ml) 10 mg IVP X1 ONE; Protocol Stop: 01/07/25 12:59 Last Admin: 01/07/25 13:15 Dose: 10 mg Documented By: BD Morphine Sulfate (Morphine Sulf Inj 4 Mg/Ml Vial) 4 mg IVP X1 ONE Stop: 01/07/25 12:56 Last Admin: 01/07/25 13:15 Dose: 4 mg Documented By: BD Ondansetron HCl (Ondansetron Odt 4 Mg Tabrap) 4 mg PO X1 ONE; Protocol Stop: 01/07/25 08:42 Last Admin: 01/07/25 08:49 Dose: 4 mg Documented By: VG Ondansetron HCl (Ondansetron Inj 2 Mg/Ml Inj 2 Ml) 4 mg IVP X1 ONE; Protocol Stop: 01/07/25 10:59 Last Admin: 01/07/25 11:20 Dose: 4 mg Documented By: VG Ondansetron HCl (Ondansetron Inj 2 Mg/Ml Inj 2 Ml) 4 mg IVP X1 ONE Stop: 01/07/25 12:56 Last Admin: 01/07/25 13:57 Dose: Not Given Documented By: BD Non-Admin Reason: Change of Condition see above Consultations Consultation(s) initiated? (list below): No Diagnosis Differential diagnosis abdominal pain: other (Gastritis, alcohol-induced gastritis or pancreatitis, and cyclic vomiting syndrome.) Most likely diagnosis given after review of the tests above:: Cannabinoid hyperemesis syndrome Admission Indicated Admission indicated?: not indicated Admission Request Was there a request for admission?: No Disposition Plan Disposition Plan: Discharge Discharge Attestation Discharge Attestation: The patient and all family members were given an opportunity to ask questions and understood the discharge instructions. Discharge instructions specifically effects, indications for sooner follow up or return to the emergency department, and the expected course of current diagnosis. Patient condition: Stable Discharge Plan Plan Patient Disposition: HOME (Self Care) Prescriptions/Referrals Prescriptions/Med Rec: No Action omeprazole 20 mg capsule,delayed release(DR/EC) 20 mg PO QDAY Qty: 30 0RF sucralfate 1 gram tablet 1 g PO Q6H 28 Days Qty: 112 0RF famotidine [Pepcid] 20 mg tablet 20 mg PO BID Qty: 60 0RF ondansetron 4 mg tablet,disintegrating 4 mg PO Q8H Qty: 20 0RF ondansetron 4 mg tablet,disintegrating 4 mg PO Q8H PRN (Reason: nausea and vomiting) Qty: 10 0RF hydroxyzine HCl 25 mg tablet 25 mg PO HS Patient Comments: TAKE ONE TABLET BY MOUTH AT BEDTIME sertraline 50 mg tablet 50 mg PO Q24H Patient Comments: TAKE ONE TABLET BY MOUTH EVERY DAY Referrals: Boyd Gifford MD [Primary Care Provider, Family Practice] - In 1 week Problem List Clinical Impression: Cannabinoid hyperemesis syndrome Patient/Caregiver Discharge Instructions Education Materials: Cannabinoid Hyperemesis Syndrome Print Language: [place] Stand Alone Forms: Abigail Award Info., Patient Portal Info Letter
[2025-01-07] MEDS: SODIUM CHLORIDE 0.9% 1000 ML 1,000 ML 999 ML IV ×2 (11:16)
[2025-01-07 11:18] LABS: Collection Type, Urine Voided; Squamous Epithelial Cell,Urine 0 /hpf (0-5)
[2025-01-07] MEDS: ONDANSETRON INJ 2 MG/ML INJ 2 ML 4 MG IVP (11:20)
[2025-01-07] MEDS: LORazepam 2 MG/ML VIAL 1 MG IVP (11:28)
[2025-01-07 11:30] VITALS: BP 156/93; PULSE 93; RESP 20; TEMP 36.6; O2SAT 99
[2025-01-07 11:45] LABS: Alcohol, Blood Medical < 10.0 mg/dL (0-10.0)
[2025-01-07 11:47] LABS: Bilirubin,Urine Negative (Negative); Blood,Urine Trace (Negative); Clarity,Urine Clear (Clear/Hazy); Color,Urine Lt-Yellow (Lt Yel-Yel); Culture Indicated,Urine Not Indicated; Glucose, Urine Negative (Negative); Ketones,Urine 4+ (Negative); Leukocyte Esterase,Urine Negative (Negative); Nitrite,Urine Negative (Negative); PH,Urine 6.0 (5.0-7.0); Protein,Urine 1+ (Neg - Trace); RBC,Urine 1 /hpf (0-3); Specific Gravity,Urine 1.027 (1.001-1.035); Urobilinogen,Urine Negative mg/dL (0.0-1.0); WBC,Urine < 1 /hpf (0-5)
[2025-01-07 12:14] LABS: Lactate (Lactic Acid) 1.5 mMol/L (0.4-2.0)
[2025-01-07 13:00] VITALS: BP 151/87; PULSE 113; RESP 18; TEMP 36.9; O2SAT 100
[2025-01-07] MEDS: MORPHINE SULF INJ 4 MG/ML VIAL IVP (13:15)
[2025-01-07] MEDS: METOCLOPRAMIDE INJ 5 MG/ML VIAL 2 ML 10 MG IVP (13:15)
[2025-01-07] MEDS: HALOPERIDOL LACT INJ 5 MG/ML VIAL IM (14:27)
[2025-01-07 15:00] VITALS: BP 140/80; PULSE 117; RESP 18; TEMP 36.9; O2SAT 98
[2025-01-07 15:11] LABS: Anion Gap 17 (7-16); BUN/Creatinine Ratio 8 Ratio (12-20); Blood Urea Nitrogen 6 mg/dL (9-23); Calcium 8.3 mg/dL (8.3-10.6); Carbon Dioxide 17.3 mMol/L (20.0-31.0); Chloride 106 mMol/L (98-107); Creatinine (Component) 0.8 mg/dL (0.6-1.3); Estimated Creatinine Clearance 133.6 mL/min (>60); Glucose 100 mg/dL (74-106); Osmolality,Calculated 277 (275-295); Potassium 3.9 mMol/L (3.4-5.1); Sodium 140 mMol/L (136-145); eGFR > 60 See Note
== END 2025-01-07 15:47 | disposition home or self-care (01) ==
PROVIDERS: Nurse Practitioner Family; Emergency Provider Emergency Medicine; PCP Family Medicine
DX: R11.16 Cannabis hyperemesis syndrome (principal)
CPT/HCPCS: 36415; 80048; 80053; 80320; 81001; 83605; 83690; 85025; 96361; 96372; 96374; 96375; 99283; J1630; J2060; J2270; J2405; J2765; J7030; Q0162; G0480